=== PATIENT | female | born 1945 | race Caucasian/White ===

== ENCOUNTER 2017-02-17 05:02 | Inpatient (IN) | payer MEDICARE, OTHER ==
[2017-02-17] MEDS ORDERED: ASPIRIN 81 MG CHEW PO STA (05:03)
[2017-02-17] MEDS ORDERED: NITROGLYCERIN SL TABS 0.4 MG TAB SUBLINGUAL PRN (05:03)
[2017-02-17] MEDS: ATROPINE SULFATE 0.1 MG/ML 10ML SYRINGE IV STA ×2 (05:20→05:24)
[2017-02-17] MEDS: HEPARIN SODIUM,PORCINE 5,000 UNIT/ML 1 ML VIAL IV STA ×2 (05:21→05:22)
[2017-02-17 05:29] LABS: CH 29.8; CHCM 29.5; HCT 40.5 % (34.0-46.0); HDW 2.35; HGB 12.8 gm/dL (11.4-16.0); Hypochromasia Marked; MCH 32.1 pg (25.0-35.0); MCHC 31.7 g/dL (31.0-37.0); MCV 101.4 fL (80.0-100.0); Macrocytosis Slight; Mean Platelet Volume 7.9; RDW 13.4 % (11.5-15.5)
[2017-02-17] MEDS ORDERED: ONDANSETRON 4 MG/2 ML VIAL IVP STA (05:38)
[2017-02-17 05:44] LABS: INR 1.1 (<1.1); Partial Thromboplastin Time 43.6 sec (22.0-30.0); Prothrombin Time 10.8 sec (9.0-12.0)
[2017-02-17] MEDS: MORPHINE SULFATE 4 MG/ML SYRINGE IV ONE ×2 (05:55→07:05)
[2017-02-17] MEDS ORDERED: SODIUM CHLORIDE 0.9% 1,000 ML IV ONE ×4 (05:55→21:16)
[2017-02-17] MEDS ORDERED: MORPHINE SULFATE 4 MG/ML SYRINGE ONE (05:57)
--- NOTE | 2017-02-17 05:58 | XR ---
EXAM: XR Chest, 1 View. CLINICAL HISTORY: Reason: chest pain TECHNIQUE: Frontal view of the chest. COMPARISON: No relevant prior studies available. FINDINGS: Lungs: Mild hazy opacity along the left cardiac apex and left lung base. Lungs are otherwise clear. Pleural space: Linear densities projecting to right lung apex and left upper lung zone most likely related to overlying artifacts. No definite evidence of pneumothorax. Mild pleural density right costophrenic angle which may reflect mild pleural thickening or small right pleural effusion. Heart: Heart size and mediastinal structures are within normal limits. . Mediastinum: Unremarkable. Bones/joints: Unremarkable. IMPRESSION: Left base opacity extending to cardiac apex which may be related to prominent cardiac fat pad, but cannot exclude mild basilar infiltrate or partial atelectasis. Small right pleural effusion or mild pleural thickening along the right costophrenic angle.
[2017-02-17] MEDS ORDERED: ATROPINE SULFATE 0.1 MG/ML 10ML SYRINGE IV ONE ×2 (06:03→07:41)
[2017-02-17] MEDS ORDERED: DOPamine DRIP 800 MG in DEXTROSE/WATER 1 500ML.BAG IV ONE (06:03)
[2017-02-17 06:17] LABS: Troponin I 0.448 ng/mL (0.000-0.034)
[2017-02-17] MEDS ORDERED: NOREPINEPHRINE 4 MG in SODIUM CHLORIDE 0.9% 250 ML IV ONE (06:20)
[2017-02-17] MEDS ORDERED: BIVALIRUDIN BOLUS 250 MG/50 ML IV ONE (06:24)
[2017-02-17] MEDS ORDERED: BIVALIRUDIN 250 MG in SODIUM CHLORIDE 0.9% 50 ML IV ONE ×5 (06:26→07:40)
[2017-02-17 06:31] LABS: Calcium 9.5 mg/dL (8.4-10.2); Potassium 4.9 mmol/L (3.5-5.1); Total Protein 6.5 g/dL (6.3-8.2)
[2017-02-17] MEDS ORDERED: niCARdipine 25 MG/10 ML VIAL ONE (06:31)
[2017-02-17] MEDS ORDERED: SODIUM BICARB SYR (1 MEQ/ML) 10 ML SYRINGE IV ONE ×2 (06:37→06:39)
[2017-02-17] MEDS ORDERED: SODIUM BICARB 8.4% 50 ML VIAL (1 MEQ/ML) IV ONE ×3 (06:37→08:02)
[2017-02-17] MEDS ORDERED: niCARdipine Syringe (1,000 mcg/10 mL) INTRACORON ONE (06:39)
[2017-02-17] MEDS ORDERED: INSULIN LISPRO (humaLOG) 300 UNIT/3 ML VIAL SQ ONE ×2 (06:40→08:25)
[2017-02-17] MEDS ORDERED: diphenhydrAMINE 50 MG/ML 1 ML VIAL ONE (07:00)
[2017-02-17] MEDS ORDERED: MIDAZOLAM 2 MG/2 ML VIAL ONE (07:02)
[2017-02-17] MEDS ORDERED: METOPROLOL TARTRATE 5 MG/5 ML VIAL IVP ONE ×2 (07:03→07:06)
[2017-02-17] MEDS ORDERED: diphenhydrAMINE 50 MG/ML 1 ML VIAL IVP ONE (07:04)
[2017-02-17] MEDS ORDERED: MORPHINE SULFATE (PF) 1 MG/ML AMP IV ONE (07:05)
[2017-02-17] MEDS ORDERED: PRASUGREL 10 MG TAB ONE (07:06)
[2017-02-17] MEDS: MIDAZOLAM 2 MG/2 ML VIAL IV ONE ×2 (07:07→07:35)
[2017-02-17] MEDS ORDERED: PROPOFOL 10 MG/ML 20 ML VIAL IV ONE (07:28)
[2017-02-17] MEDS ORDERED: SUCCINYLCHOLINE CHLORIDE 100 MG/5 ML SYR IV ONE (07:28)
[2017-02-17] MEDS ORDERED: ETOMIDATE 2 MG/ML 10 ML VIAL ONE (07:28)
[2017-02-17] MEDS ORDERED: ROCURONIUM BROMIDE 10 MG/ML 10 ML VIAL IV ONE (07:28)
[2017-02-17] MEDS ORDERED: IODIXANOL 320 MG/ML 100 ML INTRAARTER ONE (07:49)
[2017-02-17 07:51] LABS: ABG Base Excess -21.5 mmol/L; ABG HCO3 10 mmol/L (21-25); ABG PCO2 53 mmHg (35-45); ABG PH <7.00 (7.35-7.45); ABG PO2 122 mmHg (83-108)
[2017-02-17 07:52] LABS: ABG Oxygen Saturation 95.5 % (94-97)
[2017-02-17] MEDS ORDERED: PRASUGREL 10 MG TAB OG-TUBE ONE (07:56)
[2017-02-17 08:00] LABS: Basophils # (A) 0.1 k/uL (0-0.2); Basophils % (A) 1 %; CH 29.5; CHCM 27.8; Eosinophils # (A) 0.1 k/uL (0-0.7); Eosinophils % (A) 1 %; HCT 38.1 % (34.0-46.0); HDW 2.31; HGB 11.5 gm/dL (11.4-16.0); Hypochromasia Marked; Luc % (Auto) 3; Lymphocytes # (A) 3.6 k/uL (1.0-4.8); Lymphocytes % (A) 31 %; MCH 32.3 pg (25.0-35.0); MCHC 30.3 g/dL (31.0-37.0); MCV 106.6 fL (80.0-100.0); Macrocytosis Moderate; Mean Platelet Volume 7.7; Monocytes # (A) 0.4 k/uL (0-1.0); Monocytes % (A) 3 %; Neutrophils # (A) 7.4 k/uL (1.3-7.7); Neutrophils % (A) 63 %; RBC 3.57 m/uL (3.80-5.40); RDW 13.4 % (11.5-15.5); WBC 11.9 k/uL (3.8-10.6)
[2017-02-17 08:01] LABS: Calcium 7.5 mg/dL (8.4-10.2); Potassium 4.9 mmol/L (3.5-5.1); Total Bilirubin 0.9 mg/dL (0.2-1.3); Total Protein 5.4 g/dL (6.3-8.2)
[2017-02-17] MEDS ORDERED: SODIUM BICARB 8.4% 50 ML SYR (1 MEQ/ML) IV ONE (08:02)
[2017-02-17] MEDS ORDERED: SODIUM CHLORIDE 0.45% 1,000 ML with SODIUM BICARB (1 MEQ/ML) 50 ML IV SCH ×2 (08:15)
[2017-02-17] MEDS ORDERED: SODIUM CHLORIDE 0.45% 1,000 ML IV SCH (08:15)
[2017-02-17] MEDS ORDERED: Potassium Replacement Protocol 1 EACH MISC MISCELLANE PRN (08:21)
[2017-02-17] MEDS ORDERED: Magnesium Replacement Protocol 1 EACH MISC MISCELLANE PRN (08:21)
[2017-02-17 08:52] LABS: Glucose,Whole Blood >600 mg/dL (75-99)
[2017-02-17] MEDS ORDERED: NALOXONE 0.4 MG/ML 1 ML VIAL IV PRN (09:06)
[2017-02-17 09:20] LABS: Basophils # (A) 0.1 k/uL (0-0.2); Basophils % (A) 1 %; CH 30.2; CHCM 28.7; Eosinophils # (A) 0.1 k/uL (0-0.7); Eosinophils % (A) 1 %; HCT 39.3 % (34.0-46.0); HDW 2.27; HGB 11.7 gm/dL (11.4-16.0); Hypochromasia Marked; Luc # (Auto) 0.16; Luc % (Auto) 1; Lymphocytes # (A) 2.5 k/uL (1.0-4.8); Lymphocytes % (A) 16 %; MCH 31.5 pg (25.0-35.0); MCHC 29.8 g/dL (31.0-37.0); MCV 105.5 fL (80.0-100.0); Macrocytosis Moderate; Mean Platelet Volume 7.8; Monocytes # (A) 0.3 k/uL (0-1.0); Monocytes % (A) 2 %; Neutrophils # (A) 12.9 k/uL (1.3-7.7); Neutrophils % (A) 80 %; RBC 3.73 m/uL (3.80-5.40); RDW 13.6 % (11.5-15.5); WBC 16.1 k/uL (3.8-10.6); WBC (Perox) 15.09
[2017-02-17 09:23] LABS: Calcium 7.6 mg/dL (8.4-10.2); Potassium 4.8 mmol/L (3.5-5.1); Total Bilirubin 1.4 mg/dL (0.2-1.3); Total Protein 6.3 g/dL (6.3-8.2)
[2017-02-17 09:32] LABS: Prothrombin Time 62.2 sec (9.0-12.0)
[2017-02-17 09:36] LABS: Partial Thromboplastin Time >200.0 sec (22.0-30.0)
--- NOTE | 2017-02-17 09:36 | XR ---
EXAMINATION TYPE: XR chest 1V portable DATE OF EXAM: 02/17/2017 9:25 AM CLINICAL HISTORY: Difficulty breathing had to be intubated. TECHNIQUE: Single AP portable supine view of the chest is obtained. COMPARISON: Chest x-ray from earlier today FINDINGS: There is new endotracheal tube at aortic knob level, approximately 1 to 2 cm above the italo. There is new orogastric tube projecting below left hemidiaphragm. Cardiac silhouette size is stable and upper limits of normal. There is new central vascular congestio n felt present. Patchy bibasilar atelectatic changes now seen. No large pleural effusion or pneumotho rax is noted. Osseous structures are intact. IMPRESSION: 1. New ET and OGT are satisfactory in position. 2. New mild central vascular congestion and patchy bibasilar atelectatic change.
[2017-02-17 09:37] LABS: INR 6.1 (<1.1)
[2017-02-17 09:38] LABS: ABG PCO2 44 mmHg (35-45); ABG PH 7.15 (7.35-7.45)
[2017-02-17 09:39] LABS: ABG Base Excess -12.6 mmol/L; ABG HCO3 15 mmol/L (21-25); ABG PO2 89 mmHg (83-108); ABG TCO2 16 mmol/L (19-24)
[2017-02-17 09:43] LABS: Manual Review Performed
[2017-02-17] MEDS: INSULIN REGULAR 100 UNIT in SODIUM CHLORIDE 0.9% 100 ML IV SCH ×2 (09:43→17:06)
[2017-02-17 10:05] LABS: Troponin I 20.3 ng/mL (0.000-0.034)
[2017-02-17 10:16] LABS: Appearance,Urine Cloudy (Clear); Bilirubin,Urine Negative (Negative); Glucose,Urine (UA) 4+ (Negative); Ketones,Urine 1+ (Negative); Leukocyte Esterase,Urine Trace (Negative); Mucus,Urine Rare /hpf; Nitrite,Urine Positive (Negative); PH, Urine 5.5 (5.0-8.0); Particle Count 8482; Protein,Urine 1+ (Negative); RBC,Urine 29 /hpf (0-5); Specific Gravity,Urine 1.018 (1.001-1.035); UA Billing (MACRO vs. MICRO) MICRO; Urobilinogen,Urine <2.0 mg/dL (<2.0); WBC,Urine 6 /hpf (0-5)
[2017-02-17] MEDS ORDERED: SODIUM CHLORIDE 0.45% 1,000 ML with SODIUM BICARB (1 MEQ/ML) 150 ML IV SCH ×2 (10:30)
[2017-02-17 10:34] LABS: Glucose,Whole Blood 571 mg/dL (75-99)
[2017-02-17] MEDS: SODIUM CHLORIDE 0.9% 1,000 ML IV SCH (10:37)
[2017-02-17] MEDS: NOREPINEPHRINE 4 MG in SODIUM CHLORIDE 0.9% 250 ML IV SCH ×3 (10:40→20:00)
[2017-02-17] MEDS: PROPOFOL 500 MG in EMPTY BAG 1 BAG IV SCH ×4 (10:40→22:54)
--- NOTE | 2017-02-17 10:43 | ECHOF ---
Referral Reason:stemi/balloon pump MEASUREMENTS -------- HEIGHT: 157.5 cm WEIGHT: 74.8 kg BP: 116/60 IVSd: 1.2 cm (0.6 - 1.1) LVIDd: 4.0 cm (3.9 - 5.3) LVPWd: 1.1 cm (0.6 - 1.1) IVSs: 2.4 cm LVIDs: 3.0 cm LVPWs: 1.1 cm Ao Diam: 3.9 cm (2.0 - 3.7) AV Cusp: 2.0 cm (1.5 - 2.6) LA Diam: 3.0 cm (2.7 - 3.8) MV EXCURSION: 11.106 mm (> 18.000) MV EF SLOPE: 70 mm/s (70 - 150) EPSS: 2.2 cm MV E Kirk: 0.89 m/s MV DecT: 178 ms MV A Kirk: 0.48 m/s MV E/A Ratio: 1.87 AR PHT: 779 ms RAP: 5.00 mmHg RVSP: 21.41 mmHg FINDINGS -------- Resting tachycardia (HR>100bpm). This was a technically good study. There is borderline concentric left ventricular hypertrophy. Overall left ventricular systolic function is moderately impaired with, an EF between 35 - 40 %. Inferiorlateral Hypokinesis The right ventricle is normal in size and function. The left atrium is normal in size. The right atrium is normal in size. The aortic valve is trileaflet, and appears structurally normal. No aortic stenosis or regurgitation. There is mild aortic regurgitation. The mitral valve leaflets are mildly thickened. Mild mitral regurgitation is present. Mild tricuspid regurgitation present. The right ventricular systolic pressure, as measured by Doppler, is 21.41mmHg. Pulmonic valve appears structurally normal. The aortic root is mildy dilated. The pericardium is normal. CONCLUSIONS -------- 1. Resting tachycardia (HR>100bpm). 2. There is mild aortic regurgitation. 3. The mitral valve leaflets are mildly thickened. 4. Mild mitral regurgitation is present. 5. Mild tricuspid regurgitation present. 6. The right ventricular systolic pressure, as measured by Doppler, is 21.41mmHg. 7. Pulmonic valve appears structurally normal. 8. The aortic root is mildy dilated. 9. The pericardium is normal. 10. This was a technically good study. 11. There is borderline concentric left ventricular hypertrophy. 12. Overall left ventricular systolic function is moderately impaired with, an EF between 35 - 40 %. 13. Inferiorlateral Hypokinesis 14. The right ventricle is normal in size and function. 15. The left atrium is normal in size. 16. The right atrium is normal in size. 17. The aortic valve is trileaflet, and appears structurally normal. No aortic stenosis or regurgitation. RISK OFFICER: Charo Monreal RDCS
[2017-02-17 11:06] LABS: Glucose,Whole Blood 561 mg/dL (75-99)
[2017-02-17] MEDS: DOPamine DRIP 800 MG in DEXTROSE/WATER 1 500ML.BAG IV SCH (11:37)
[2017-02-17 11:52] LABS: ALT 277 U/L (9-52); AST 736 U/L (14-36); Alkaline Phosphatase 120 U/L (38-126); Anion Gap 17 mmol/L; Blood Urea Nitrogen 17 mg/dL (7-17); Calcium 8.1 mg/dL (8.4-10.2); Carbon Dioxide 17 mmol/L (22-30); Chloride 107 mmol/L (98-107); Magnesium 1.7 mg/dL (1.6-2.3); Non-African American GFR(MDRD) 43 (>60 ml/min/1.73 sqM); Phosphorous 4.7 mg/dL (2.5-4.5); Potassium 4.8 mmol/L (3.5-5.1); Sodium 141 mmol/L (137-145); Total Bilirubin 1.6 mg/dL (0.2-1.3); Total Protein 6.4 g/dL (6.3-8.2)
[2017-02-17] MEDS ORDERED: PANTOPRAZOLE 40 MG/10 ML VIAL IVP SCH (11:52)
[2017-02-17 12:06] LABS: Glucose 565 mg/dL (74-99)
[2017-02-17 12:08] LABS: Glucose,Whole Blood 429 mg/dL (75-99)
[2017-02-17] MEDS: PANTOPRAZOLE 40 MG/10 ML VIAL IVP SCH (12:19)
[2017-02-17 13:15] LABS: ABG Base Excess -13.7 mmol/L; ABG HCO3 14 mmol/L (21-25); ABG PCO2 48 mmHg (35-45); ABG PO2 163 mmHg (83-108); ABG TCO2 16 mmol/L (19-24)
[2017-02-17 13:18] LABS: Glucose,Whole Blood 363 mg/dL (75-99)
--- NOTE | 2017-02-17 13:26 | P.CNPUL ---
History of Present Illness Consult date: 02/17/17 Requesting physician: Angelique Christie Chief complaint: status post acute ST elevation myocardial infarction and stent placement History of present illness: this is a 71-year-old femalewas admitted from the cardiac catheterization laboratory to the intensive care unit, patient supposedly presented with acute ST elevation myocardial infarction, and she underwent immediate cardiac catheterization and stent placement. While in the tender labor, patient became hypotensive, required intra-aortic balloon pump placement, placed on dopamine and levo fed, intubated in the cardiac tender labor, and transferred to the ICU and I was asked to see her on consultation.patient is presently on mechanical ventilation, not much history can be obtained from the patient, and no family members at bedside upon my initial evaluation. Dr. Walsh apparently tried earlier to get hold of some family members, and he was unsuccessful. At any rate patient is now on mechanical ventilation, ventilator settings were adjusted according to the ABG. Chest x-ray showed no evidence of congestive heart failure.initial ABG showed a pO2 of 89 pCO2 of 44 pH of 7.15,follow up ABG was significantly improved.blood sugar was noted to be elevated, and liver enzymes were also elevated upon presentation. [place] to be most likely related to hypoperfusion. Review of Systems ROS unobtainable: due to endotracheal tube Past Medical History Past Medical History: Diabetes Mellitus, Hypertension, Osteoarthritis (OA) Additional Past Medical History / Comment(s): NIDDM type II, arthritis bilateral knees and thumbs, diarrhea r/t medications. History of Any Multi-Drug Resistant Organisms: None Reported Past Surgical History: Cholecystectomy, Heart Catheterization With Stent, Tubal Ligation Additional Past Surgical History / Comment(s): 02/17/17 PCI with stent to RCA. Past Anesthesia/Blood Transfusion Reactions: No Reported Reaction Date of Last Stent Placement:: 02/17/17 Past Psychological History: No Psychological Hx Reported Additional Psychological History / Comment(s): Pt resides alone. She is independent. Smoking Status: Current every day smoker Past Alcohol Use History: None Reported Additional Past Alcohol Use History / Comment(s): Family states pt started smoking as a teen. Past Drug Use History: None Reported - Past Family History Father Family Medical History: Respiratory Disorder Mother Family Medical History: Dementia, Rheumatoid Arthritis (RA) Medications and Allergies Home Medications Medication Instructions Recorded Confirmed Type Glimepiride [Glimepiride] 1 mg PO AC-BID 02/17/17 02/17/17 History Lovastatin [Mevacor] 10 mg PO HS 02/17/17 02/17/17 History Valsartan [Valsartan] 80 mg PO DAILY 02/17/17 02/17/17 History metFORMIN HCL [Metformin HCl] 1,000 mg PO BID 02/17/17 02/17/17 History Allergies Allergy/AdvReac Type Severity Reaction Status Date / Time codeine Allergy Unknown Verified 02/17/17 05:13 Physical Exam Vitals: Vital Signs Temp Pulse Resp BP Pulse Ox 02/17/17 13:00 97.9 F 92 23 100 02/17/17 12:50 92 23 100 02/17/17 12:40 92 23 100 02/17/17 12:30 91 23 100 02/17/17 12:20 94 23 100 02/17/17 12:10 91 20 100 02/17/17 12:00 93 23 100 02/17/17 11:50 94 19 100 02/17/17 11:40 91 12 100 02/17/17 11:30 94.4 F L 95 19 99 02/17/17 11:20 88 13 100 02/17/17 11:10 95 23 99 02/17/17 11:00 92 0 L 99 02/17/17 10:50 95 5 L 99 02/17/17 10:40 89 13 98 02/17/17 10:30 95 22 98 02/17/17 10:20 88 0 L 98 02/17/17 10:10 90 7 L 98 02/17/17 10:00 93 8 L 97 02/17/17 09:50 96 6 L 97 02/17/17 09:40 101 H 0 L 97 02/17/17 09:30 100 21 96 02/17/17 09:20 97 22 97 02/17/17 09:10 90 22 96 02/17/17 09:00 89 24 98 02/17/17 08:54 93.5 F L 89 22 100 02/17/17 05:37 50 L 22 75/46 100 02/17/17 05:23 55 L 20 88/52 100 Intake and Output 02/16/17 02/17/17 02/17/17 22:59 06:59 14:59 Intake Total 1420 734.047 Output Total 675 Balance 1420 59.047 Intake: IV 1420 200 Intake, IV Titration 534.047 Amount DOPamine DRIP 800 mg In 33.6 Dextrose/Water 1 500ml. bag @ 3 MCG/KG/MIN 9.15 mls/hr IV .Q24H [facility] Rx#: [id number] Insulin Regular 100 unit 28.093 In Sodium Chloride 0.9% 100 ml @ 0.1 UNITS/KG/HR 7.55 mls/hr IV .[id number] [facility] Rx#:[id number] Norepinephrine 4 mg In 20.341 Sodium Chloride 0.9% 250 ml @ Titrate IV .Q0M [facility] Rx#:[id number] Propofol 500 mg In Empty 22.013 Bag 1 bag @ Titrate IV . Q0M [facility] Rx#:[id number] Sodium Chloride 0.45% 1, 125 000 ml @ 125 mls/hr IV . Q8H24M [facility] with Sodium Bicarb (1 Meq/ml) 50 ml Rx#:[id number] Sodium Chloride 0.45% 1, 225 000 ml @ 75 mls/hr IV . [id number] [facility] with Sodium Bicarb (1 Meq/ml) 150 ml Rx#:[id number] Sodium Chloride 0.9% 1, 80 000 ml @ 20 mls/hr IV . Q24H [facility] Rx#:[id number] Output: Urine 675 Other: Voiding Method Indwelling Catheter Weight 81.4 kg Patient Weight 02/18/17 06:59 Weight 81.4 kg ABP, PAP, CO, CI - Last 8 Hours Arterial Blood Pressure 102/51 Arterial Blood Pressure 106/35 Arterial Blood Pressure 107/34 Arterial Blood Pressure 89/35 Arterial Blood Pressure 91/50 Arterial Blood Pressure 100/44 Arterial Blood Pressure 101/49 Arterial Blood Pressure 94/52 Arterial Blood Pressure 132/74 Arterial Blood Pressure 97/50 Arterial Blood Pressure 126/55 Arterial Blood Pressure 93/40 Arterial Blood Pressure 99/41 Arterial Blood Pressure 109/55 Arterial Blood Pressure 134/76 Arterial Blood Pressure 105/44 Arterial Blood Pressure 102/56 Arterial Blood Pressure 91/52 Arterial Blood Pressure 109/56 Arterial Blood Pressure 120/63 Arterial Blood Pressure 120/62 Arterial Blood Pressure 114/63 Arterial Blood Pressure 110/59 Arterial Blood Pressure 102/51 Arterial Blood Pressure 107/48 Physical Exam: Revealed a 71-year-old female on mechanical ventilation, sedated , in no distress. HEENT:[Neck is supple.] [No neck masses.] [No thyromegaly.] [No JVD.] endotracheal tube is intact. Chest: minimal crackles at the bases, no rhonchi, no wheezes] Cardiac Exam: [Normal S1 and S2, no S3 gallop, no murmur.] Abdomen: [Soft, nontender, no megaly, no rebound, no guarding, normal bowel sounds.] Extremities: [No clubbing, no edema, no cyanosis.]intra-aortic balloon pump was noted, and it was placed through the right groin. Neurological Exam: cannot be assessed, patient is on propofol drip.] Results - Laboratory Findings CBC and BMP: 02/17/17 08:56 02/17/17 11:05 ABG ABG pH 7.15 (7.35-7.45) L* 02/17/17 09:28 ABG pCO2 44 mmHg (35-45) 02/17/17 09:28 ABG pO2 89 mmHg (83-108) 02/17/17 09:28 ABG O2 Saturation 94.0 % (94-97) 02/17/17 09:28 PT/INR, D-dimer PT 62.2 sec (9.0-12.0) H 02/17/17 08:56 INR 6.1 (<1.1) H* 02/17/17 08:56 Abnormal lab findings: Abnormal Labs 02/17/17 02/17/17 02/17/17 07:30 07:30 07:30 WBC 11.9 H RBC 3.57 L MCV 106.6 H D MCHC 30.3 L Neutrophils # PT INR APTT ABG pH <7.00 L* ABG pCO2 53 H ABG pO2 122 H ABG HCO3 10 L* ABG Total CO2 ABG O2 Saturation ABG Lactic Acid Carbon Dioxide 10 L* Creatinine 1.31 H Glucose 724 H* POC Glucose (mg/dL) Calcium 7.5 L Phosphorus Total Bilirubin AST 261 H ALT 128 H CK-MB (CK-2) Troponin I Total Protein 5.4 L Albumin 2.8 L Urine Appearance Urine Protein Urine Glucose (UA) Urine Ketones Urine Blood Urine Nitrite Ur Leukocyte Esterase Urine RBC Urine WBC Urine Mucus 02/17/17 02/17/17 02/17/17 07:30 08:50 08:50 WBC RBC MCV MCHC Neutrophils # PT INR APTT ABG pH ABG pCO2 ABG pO2 ABG HCO3 ABG Total CO2 ABG O2 Saturation ABG Lactic Acid Carbon Dioxide Creatinine Glucose POC Glucose (mg/dL) >600 H Calcium Phosphorus Total Bilirubin AST ALT CK-MB (CK-2) Troponin I 5.090 H* Total Protein Albumin Urine Appearance Cloudy H Urine Protein 1+ H Urine Glucose (UA) 4+ H Urine Ketones 1+ H Urine Blood Moderate H Urine Nitrite Positive H Ur Leukocyte Esterase Trace H Urine RBC 29 H Urine WBC 6 H Urine Mucus Rare H 02/17/17 02/17/17 02/17/17 08:53 08:56 08:56 WBC 16.1 H RBC 3.73 L MCV 105.5 H MCHC 29.8 L Neutrophils # 12.9 H PT INR APTT ABG pH 7.10 L* ABG pCO2 48 H ABG pO2 163 H ABG HCO3 14 L ABG Total CO2 16 L ABG O2 Saturation 99.0 H ABG Lactic Acid Carbon Dioxide 14 L Creatinine 1.30 H Glucose 686 H* POC Glucose (mg/dL) Calcium 7.6 L Phosphorus Total Bilirubin 1.4 H AST 478 H ALT 214 H CK-MB (CK-2) Troponin I Total Protein Albumin Urine Appearance Urine Protein Urine Glucose (UA) Urine Ketones Urine Blood Urine Nitrite Ur Leukocyte Esterase Urine RBC Urine WBC Urine Mucus 02/17/17 02/17/17 02/17/17 08:56 08:56 08:56 WBC RBC MCV MCHC Neutrophils # PT 62.2 H INR 6.1 H* APTT >200.0 H* ABG pH ABG pCO2 ABG pO2 ABG HCO3 ABG Total CO2 ABG O2 Saturation ABG Lactic Acid 12.0 H* Carbon Dioxide Creatinine Glucose POC Glucose (mg/dL) Calcium Phosphorus Total Bilirubin AST ALT CK-MB (CK-2) 59.0 H* Troponin I 20.300 H* Total Protein Albumin Urine Appearance Urine Protein Urine Glucose (UA) Urine Ketones Urine Blood Urine Nitrite Ur Leukocyte Esterase Urine RBC Urine WBC Urine Mucus 02/17/17 02/17/17 02/17/17 09:28 10:30 11:05 WBC RBC MCV MCHC Neutrophils # PT INR APTT ABG pH 7.15 L* ABG pCO2 ABG pO2 ABG HCO3 15 L ABG Total CO2 16 L ABG O2 Saturation ABG Lactic Acid Carbon Dioxide 17 L Creatinine 1.24 H Glucose 565 H* POC Glucose (mg/dL) 571 H Calcium 8.1 L Phosphorus 4.7 H Total Bilirubin 1.6 H AST 736 H ALT 277 H CK-MB (CK-2) Troponin I Total Protein Albumin Urine Appearance Urine Protein Urine Glucose (UA) Urine Ketones Urine Blood Urine Nitrite Ur Leukocyte Esterase Urine RBC Urine WBC Urine Mucus 02/17/17 02/17/17 11:05 12:06 WBC RBC MCV MCHC Neutrophils # PT INR APTT ABG pH ABG pCO2 ABG pO2 ABG HCO3 ABG Total CO2 ABG O2 Saturation ABG Lactic Acid Carbon Dioxide Creatinine Glucose POC Glucose (mg/dL) 561 H 429 H Calcium Phosphorus Total Bilirubin AST ALT CK-MB (CK-2) Troponin I Total Protein Albumin Urine Appearance Urine Protein Urine Glucose (UA) Urine Ketones Urine Blood Urine Nitrite Ur Leukocyte Esterase Urine RBC Urine WBC Urine Mucus - Diagnostic Findings Chest x-ray: image reviewed (mild vascular congestion and minimal atelectatic changes.) Assessment and Plan Plan: impression: 1 acute hypoxic respiratory failure secondary to acute myocardial infarction, cardiogenic shock, and severe LV dysfunction. 2 status post stent placement and intra-aortic balloon pump placement. 3 suspect history of diabetes, patient is presently on insulin drip. Recommendation: Continue present ventilatory support, continue dopamine, levo fed, insulin, GI and DVT prophylaxis, intra-aortic balloon pump, and possibly address nutritional support in the next 24 hours. Prognosis is definitely guarded. We'll continue to follow. Time with Patient: Greater than 30
[2017-02-17 13:37] LABS: ABG HCO3 19 mmol/L (21-25); ABG PCO2 35 mmHg (35-45); ABG PH 7.34 (7.35-7.45); ABG PO2 143 mmHg (83-108); ABG TCO2 20 mmol/L (19-24)
[2017-02-17 13:38] LABS: ABG Base Excess -6.2 mmol/L
[2017-02-17] MEDS: IPRATROPIUM 0.5 MG/2.5 ML NEBU INHALATION SCH ×3 (13:40→20:46)
[2017-02-17] MEDS: LEVALBUTEROL NEB (CONC) 1.25 MG/0.5 ML AMP INHALATION SCH ×3 (13:41→20:45)
[2017-02-17 14:02] LABS: Glucose,Whole Blood 308 mg/dL (75-99)
[2017-02-17] MEDS: MAGNESIUM SULFATE-D5W PMX 1 GM in DEXTROSE/WATER 1 100ML.BAG IVPB SCH ×2 (14:42→15:45)
[2017-02-17 15:12] LABS: Glucose,Whole Blood 253 mg/dL (75-99)
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
[2017-02-17 15:41] LABS: Calcium 8.3 mg/dL (8.4-10.2); Phosphorous 2.1 mg/dL (2.5-4.5); Potassium 3.5 mmol/L (3.5-5.1)
[2017-02-17] MEDS ORDERED: SODIUM CHLORIDE 0.9% 500 ML IV ONE ×2 (15:44→16:15)
[2017-02-17 16:23] LABS: Glucose,Whole Blood 209 mg/dL (75-99)
[2017-02-17 16:28] LABS: ABG Base Excess -3.6 mmol/L; ABG HCO3 20 mmol/L (21-25); ABG PCO2 33 mmHg (35-45); ABG PO2 120 mmHg (83-108); ABG TCO2 21 mmol/L (19-24)
[2017-02-17] MEDS: D5-0.45% NACL WITH KCL 20MEQ/L 1,000 ML IV SCH (16:49)
[2017-02-17 17:06] LABS: Glucose,Whole Blood 180 mg/dL (75-99)
[2017-02-17 17:55] LABS: Glucose,Whole Blood 173 mg/dL (75-99)
[2017-02-17 18:09] LABS: Glucose,Whole Blood 176 mg/dL (75-99)
[2017-02-17 19:31] LABS: Glucose,Whole Blood 165 mg/dL (75-99)
[2017-02-17 20:17] LABS: Glucose,Whole Blood 159 mg/dL (75-99)
[2017-02-17 20:28] LABS: Basophils % (A) 0 %; CHCM 32.1; Eosinophils % (A) 0 %; HCT 35.3 % (34.0-46.0); HDW 2.38; HGB 11.4 gm/dL (11.4-16.0); Luc # (Auto) 0.16; Luc % (Auto) 1; Lymphocytes # (A) 2.1 k/uL (1.0-4.8); Lymphocytes % (A) 15 %; MCH 31.3 pg (25.0-35.0); MCHC 32.3 g/dL (31.0-37.0); Mean Platelet Volume 8.2; Monocytes # (A) 0.7 k/uL (0-1.0); Monocytes % (A) 5 %; Neutrophils # (A) 11.4 k/uL (1.3-7.7); Neutrophils % (A) 79 %; RBC 3.63 m/uL (3.80-5.40); RDW 14.1 % (11.5-15.5); WBC 14.5 k/uL (3.8-10.6); WBC (Perox) 14.84
[2017-02-17 20:41] LABS: MCV 97.1 fL (80.0-100.0)
[2017-02-17 20:56] LABS: Calcium 7.2 mg/dL (8.4-10.2); Phosphorous 2.4 mg/dL (2.5-4.5); Potassium 3.4 mmol/L (3.5-5.1)
[2017-02-17] MEDS ORDERED: INSULIN GLARGINE 100 UNIT/ML 10 ML VIAL SQ SCH (21:00)
[2017-02-17 21:03] LABS: ABG PH 7.37 (7.35-7.45)
[2017-02-17 21:04] LABS: ABG Base Excess -5.4 mmol/L; ABG HCO3 19 mmol/L (21-25); ABG PCO2 34 mmHg (35-45); ABG PO2 111 mmHg (83-108); ABG TCO2 20 mmol/L (19-24)
[2017-02-17 21:11] LABS: Glucose,Whole Blood 156 mg/dL (75-99)
[2017-02-17] MEDS: LISINOPRIL 2.5 MG TAB PO SCH (21:14)
[2017-02-17] MEDS: CHLORHEXIDINE GLUCONATE 15 ML CUP MUCOUS MEM SCH (21:21)
--- NOTE | 2017-02-17 21:35 | ED ---
Chest Pain HPI - General Chief Complaint: Chest Pain Stated Complaint: STEMI Time Seen by Provider: 02/17/17 05:03 Source: patient, EMS Mode of arrival: EMS Limitations: physical limitation (Dyspnea) - History of Present Illness Initial Comments: This patient is a 71-year-old woman brought by EMS for chest pain. History is limited as the patient has severe dyspnea. She indicates that the pain it started on the previous day but then worsened this morning. She also developed dyspnea, vomiting, diaphoresis. She called EMS this morning who brought her here. MD Complaint: chest pain Onset/Timin -: days(s) Onset: during rest Pain Location: substernal Severity: severe Quality: heaviness Consistency: constant Improves With: nothing Worsens With: nothing Anginal Symptoms: vomiting, diaphoresis Treatments Prior to Arrival: nitroglycerin, oxygen - Related Data Home Medications Medication Instructions Recorded Confirmed Glimepiride [Glimepiride] 1 mg PO AC-BID 02/17/17 02/17/17 Lovastatin [Mevacor] 10 mg PO HS 02/17/17 02/17/17 Valsartan [Valsartan] 80 mg PO DAILY 02/17/17 02/17/17 metFORMIN HCL [Metformin HCl] 1,000 mg PO BID 02/17/17 02/17/17 Allergies Allergy/AdvReac Type Severity Reaction Status Date / Time codeine Allergy Unknown Verified 02/17/17 05:13 Review of Systems ROS Statement: Those systems with pertinent positive or pertinent negative responses have been documented in the HPI. ROS Other: All systems not noted in ROS Statement are negative. Limitations: ROS unobtainable due to patients medical condition Constitutional: Reports: weakness Respiratory: Reports: dyspnea Cardiovascular: Reports: chest pain, orthopnea Gastrointestinal: Reports: vomiting. Denies: abdominal pain Musculoskeletal: Denies: back pain Neurological: Denies: headache EKG Findings - EKG Results: EKG: interpreted by ERMD, sinus rhythm, normal axis EKG shows: bradycardia - KY, Pacemaker, Normal: Myocardial infarction: inferior KY (acute or recent) Past Medical History Past Medical History: Diabetes Mellitus, Hyperlipidemia, Hypertension, Osteoarthritis (OA) Additional Past Medical History / Comment(s): NIDDM type II, arthritis bilateral knees and thumbs, diarrhea r/t medications. History of Any Multi-Drug Resistant Organisms: None Reported Past Surgical History: Cholecystectomy, Heart Catheterization With Stent, Tubal Ligation Additional Past Surgical History / Comment(s): 02/17/17 PCI with stent to RCA. Past Anesthesia/Blood Transfusion Reactions: No Reported Reaction Date of Last Stent Placement:: 02/17/17 Past Psychological History: No Psychological Hx Reported Additional Psychological History / Comment(s): Pt resides alone. She is independent. Smoking Status: Current every day smoker Past Alcohol Use History: None Reported Additional Past Alcohol Use History / Comment(s): Family states pt started smoking as a teen and is cutting back to 5 cigarettes per day and apparently heavy smoking in the past. No street drug use, no alcohol use. She lives in the apartment. No recent falls. She does not use any DME for ambulation, no CPAP, no nebulizer. Past Drug Use History: None Reported - Past Family History Father Family Medical History: Respiratory Disorder Additional Family Medical History / Comment(s): Father at 65 from COPD. Mother Family Medical History: Dementia, Rheumatoid Arthritis (RA) Additional Family Medical History / Comment(s): Mother in her late 70s with history of Alzheimer's disease. Brother(s) Additional Family Medical History / Comment(s): She has one brother with history of heart failure and a pacemaker. Sister(s) Additional Family Medical History / Comment(s): She has 2 sisters with no major medical problems. Son(s) Additional Family Medical History / Comment(s): Patient has 3 sons and one has history of kidney stones. 2 sons with no major medical problems. Patient has one daughter with no major medical problems. General Exam Limitations: no limitations General appearance: alert, in distress Head exam: Present: atraumatic, normocephalic Eye exam: Present: normal appearance, PERRL, EOMI. Absent: scleral icterus, conjunctival injection ENT exam: Present: mucous membranes dry Neck exam: Present: normal inspection, full ROM. Absent: meningismus Respiratory exam: Present: respiratory distress, rhonchi. Absent: wheezes, stridor, decreased breath sounds, prolonged expiratory Cardiovascular Exam: Present: normal rhythm, bradycardia, normal heart sounds. Absent: systolic murmur, diastolic murmur, rubs, gallop GI/Abdominal exam: Present: soft. Absent: distended, tenderness, guarding, rebound Extremities exam: Absent: pedal edema, calf tenderness Back exam: Absent: CVA tenderness (R), CVA tenderness (L) Neurological exam: Present: alert Skin exam: Present: intact, diaphoretic, mottled. Absent: rash, cyanosis, erythema, petechiae, pallor Course Vital Signs 02/17/17 02/17/17 02/17/17 05:10 05:13 05:23 Temperature 94.7 F L Pulse Rate 47 L 55 L Respiratory 22 20 20 Rate Blood Pressure 70/40 88/52 O2 Sat by Pulse 100 100 Oximetry 02/17/17 05:37 Temperature Pulse Rate 50 L Respiratory 22 Rate Blood Pressure 75/46 O2 Sat by Pulse 100 Oximetry Chest Pain MDM - MDM This patient is 71-year-old woman brought by EMS to be evaluated for chest pain. They called approximately 2-3 minutes prior to arrival stating that they believe they had a STEMI patient. They sent a telemetry EKG that arrived approximately simultaneously with their arrival here. We repeated EKG does show inferior ST elevation [place]. The Lining Machine Tender was activated and I discussed case with the quarter inspector. On arrival he patient is in distress and the history is limited. She is bradycardic and hypotensive. Patient changed from nasal cannula 100% nonrebreather mask. IV fluid boluses started. The patient's blood pressure initially in the 70s over 40s. She did receive dose of atropine the patient's heart rate responded increasing to the mid 60s and her blood pressure then went to 88/52. The patient's chest pain also had some improvement. The patient received aspirin on arrival. The patient is started on IV heparin as well, after I reviewed the chest x-ray and there is no widened mediastinum. The patient's labs are sent and pending when she had gone to the Lining Machine Tender. The cath team and then took the patient to the Lining Machine Tender. I discussed the case with the quarter inspector and with the admitting physician. Critical Care Time Critical Care Time: Yes (30 minutes) Disposition Clinical Impression: Acute non-ST segment elevation myocardial infarction (STEMI) following previous myocardial infarction, Hypotension Disposition: ADMITTED IP TO THIS HOSP Condition: Critical
[2017-02-17] MEDS: NOREPINEPHRINE 16 MG in SODIUM CHLORIDE 0.9% 250 ML IV SCH (21:58)
[2017-02-17 22:09] LABS: Glucose,Whole Blood 150 mg/dL (75-99)
[2017-02-17] MEDS: POTASSIUM CHLORIDE 10 MEQ, LIDOCAINE 2% INJ 10 MG in SODIUM CHLORIDE 0.9% 100 ML IV SCH (22:54)
[2017-02-17] MEDS ORDERED: SODIUM PHOSPHATE 10 MMOL in SODIUM CHLORIDE 0.9% 250 ML IVPB ONE (23:00)
[2017-02-17 23:04] LABS: ABG HCO3 18 mmol/L (21-25); ABG PCO2 34 mmHg (35-45); ABG PH 7.35 (7.35-7.45); ABG PO2 83 mmHg (83-108); ABG TCO2 19 mmol/L (19-24)
[2017-02-17 23:05] LABS: ABG Base Excess -6.5 mmol/L
[2017-02-17] MEDS: DIGOXIN 250 MCG/ML 2 ML AMP IVP SCH (23:35)
[2017-02-18] MEDS: LEVALBUTEROL NEB (CONC) 1.25 MG/0.5 ML AMP INHALATION SCH ×7 (00:06→23:38)
[2017-02-18] MEDS: IPRATROPIUM 0.5 MG/2.5 ML NEBU INHALATION SCH ×7 (00:06→23:38)
[2017-02-18] MEDS: PROPOFOL 500 MG in EMPTY BAG 1 BAG IV SCH ×9 (00:16→20:19)
[2017-02-18] MEDS: POTASSIUM CHLORIDE 10 MEQ, LIDOCAINE 2% INJ 10 MG in SODIUM CHLORIDE 0.9% 100 ML IV SCH (00:16)
[2017-02-18 00:38] LABS: Glucose,Whole Blood 211 mg/dL (75-99)
[2017-02-18] MEDS: D5-0.45% NACL WITH KCL 20MEQ/L 1,000 ML IV SCH (01:11)
[2017-02-18] MEDS: INSULIN LISPRO (humaLOG) 300 UNIT/3 ML VIAL SQ SCH ×2 (01:31→04:48)
[2017-02-18] MEDS: NOREPINEPHRINE 16 MG in SODIUM CHLORIDE 0.9% 250 ML IV SCH ×4 (04:04→16:51)
[2017-02-18 04:19] LABS: Glucose,Whole Blood 265 mg/dL (75-99)
[2017-02-18] MEDS: DIGOXIN 250 MCG/ML 2 ML AMP IVP SCH (05:16)
[2017-02-18 05:53] LABS: Basophils % (A) 0 %; CH 30.9; CHCM 31.5; Eosinophils % (A) 0 %; HCT 37.7 % (34.0-46.0); HDW 2.39; HGB 11.9 gm/dL (11.4-16.0); Luc % (Auto) 1; Lymphocytes # (A) 2.1 k/uL (1.0-4.8); Lymphocytes % (A) 13 %; MCH 31.1 pg (25.0-35.0); MCHC 31.6 g/dL (31.0-37.0); MCV 98.3 fL (80.0-100.0); Mean Platelet Volume 7.6; Monocytes # (A) 0.8 k/uL (0-1.0); Monocytes % (A) 5 %; Neutrophils % (A) 81 %; RBC 3.83 m/uL (3.80-5.40); RDW 14.3 % (11.5-15.5); WBC 16.1 k/uL (3.8-10.6); WBC (Perox) 16.35
[2017-02-18 06:01] LABS: INR 1.1 (<1.1); Prothrombin Time 11.4 sec (9.0-12.0)
[2017-02-18 06:02] LABS: Magnesium 1.7 mg/dL (1.6-2.3); Phosphorous 3.5 mg/dL (2.5-4.5); Potassium 4.3 mmol/L (3.5-5.1)
[2017-02-18 06:07] LABS: Partial Thromboplastin Time 22.3 sec (22.0-30.0)
[2017-02-18] MEDS: MAGNESIUM SULFATE-D5W PMX 1 GM in DEXTROSE/WATER 1 100ML.BAG IVPB SCH ×2 (07:11→07:56)
--- NOTE | 2017-02-18 07:11 | XR ---
EXAMINATION TYPE: XR chest 1V portable DATE OF EXAM: 02/18/2017 6:45 AM Comparison: 02/17/2017 Clinical History: 71 year-old female tube placement Findings: Heart is normal size. ET tube is satisfactory. NG tube courses below the diaphragm. Pacer lead is see n coming from below to the right ventricle. Diffuse interstitial opacities show some interval improve ment. Some residual bibasilar strandy atelectasis. Impression: Interval improvement with residual mild pulmonary vascular congestion.
[2017-02-18 07:54] LABS: Glucose,Whole Blood 302 mg/dL (75-99)
[2017-02-18] MEDS ORDERED: INSULIN REGULAR BOLUS (FROM DRIP BAG) IV PRN (07:54)
[2017-02-18 08:02] LABS: Hemoglobin A1C 9.2 % (4.2-6.1)
[2017-02-18] MEDS ORDERED: FUROSEMIDE 10 MG/ML 10 ML VIAL IV STA (08:14)
[2017-02-18] MEDS: PRASUGREL 10 MG TAB PO SCH (08:24)
[2017-02-18] MEDS: PANTOPRAZOLE 40 MG/10 ML VIAL IVP SCH (08:24)
[2017-02-18] MEDS: CHLORHEXIDINE GLUCONATE 15 ML CUP MUCOUS MEM SCH ×2 (08:25→22:38)
[2017-02-18] MEDS: ASPIRIN 81 MG CHEW PO SCH (08:25)
[2017-02-18] MEDS: INSULIN REGULAR 100 UNIT in SODIUM CHLORIDE 0.9% 100 ML IV SCH ×2 (08:26→10:41)
[2017-02-18 08:28] LABS: ABG Base Excess -10.9 mmol/L; ABG HCO3 14 mmol/L (21-25); ABG PCO2 29 mmHg (35-45); ABG PH 7.32 (7.35-7.45); ABG PO2 89 mmHg (83-108); ABG TCO2 15 mmol/L (19-24)
[2017-02-18 08:47] LABS: Glucose,Whole Blood 272 mg/dL (75-99)
[2017-02-18] MEDS: DEXTROSE 5% IN WATER 1,000 ML with SODIUM BICARB (1 MEQ/ML) 150 ML IV SCH (08:52)
[2017-02-18] MEDS ORDERED: PRASUGREL 10 MG TAB PO SCH (09:00)
[2017-02-18] MEDS ORDERED: PANTOPRAZOLE 40 MG/10 ML VIAL IVP SCH (09:00)
[2017-02-18] MEDS: PIPERACILLIN-TAZOBACTAM 3.375 GM in DEXTROSE/WATER 1 50ML.BAG IVPB SCH ×2 (09:04→16:07)
--- NOTE | 2017-02-18 09:33 | CONS ---
DATE OF CONSULTATION: This is a 71-year-old patient who was seen by me with early this morning when she presented with an acute inferior RI to [facility] emergency room. This lady was seen in the ER by Dr. Taylor who called me early this morning. Her primary care physician is unknown. Apparently she sees Dr. Gu but it is not clear as to when she saw him. She has hypertension, diabetes, chronic kidney disease and she was brought into the emergency room and was found to have very hypotensive, bradycardic and was brought to the labor operator expeditiously. I evaluated her in the labor operator. Patient was having discomfort. She was not very communicative, not a good historian. Blood pressure was about 90 systolic, pulse rate was in the 50s. Patient had already received Atropine downstairs. It appeared that we were dealing with an acute inferior RI with ST elevations and patient wants intermittent complete heart block type picture with hypotension. Past medical history remarkable for diabetes, chronic kidney disease, hypertension. MEDICATIONS: No list was unavailable but apparently she takes: 1. Valsartan. 2. Glimepiride. No allergies: THERE WAS A QUESTION OF ALLERGY TO CODEINE. On examination, blood pressure was 90 systolic, pulse rate was 50 per minute. There is JVD of 1 cm. No carotid bruit. S1, S2 are heard normally, but distantly short systolic murmur was audible at the base. Lungs bilateral air entry diminished. ABDOMEN: Soft, nontender. Lower extremities reveal diminished pulses. No edema. Central nervous system assessment revealed that patient was able to move all 4 extremities. Detailed exam was not performed. EKG revealed sinus mechanism with a second degree heart block and ST elevation involving inferior leads. IMPRESSION: 1. Acute inferior myocardial infarction with high-grade AV block and cardiogenic shock. 2. History of diabetes. 3. History of hypertension. RECOMMENDATIONS: I recommended urgent cardiac catheterization, temporary pacemaker placement, aortic balloon pump placement and PCI based on findings. There was no family available. We made several attempts to contact her son Carter based on the telephone number in her possession. Prognosis remains very poor for this lady with multiple medical problems. She was also quite acidotic with a pH of 6.9. Blood sugar was elevated. I gave her NovoLog and we will treat her sugar and hydrate her aggressively. Prognosis remains poor. Mortality risk is very given her acidosis, cardiogenic shock, and also complete heart block. Prompt intervention was advised.
[2017-02-18 09:53] LABS: Glucose,Whole Blood 249 mg/dL (75-99)
[2017-02-18 10:11] LABS: Glucose,Whole Blood 234 mg/dL (75-99)
--- NOTE | 2017-02-18 10:51 | P.PN ---
Subjective Principal diagnosis: Acute respiratory failure secondary to acute myocardial infarction/ST elevation myocardial infarction. This is a 71-year-old female who presented yesterday with acute inferior myocardial infarction. Patient was seen in the ER by cardiology, and she underwent immediate cardiac catheterization. Patient was found to have significant ST elevation and intermittent complete heart block picture with hypotension. In the [employer], patient developed high-grade AV block and cardiogenic shock. Patient had a temporary pacemaker placement and aortic balloon pump placement and PCI. Patient was later transferred to the ICU, and I saw on consultation yesterday. Today on 02/18/2017, patient remains on mechanical ventilation, remains on sodium bicarb drip, her ABG showed a pO2 of 89 pCO2 of 29 pH of 7.32. WBC count 16.1 hemoglobin is 11.9 PTT is 22.3 INR is 1.1. BUN is 16 creatinine is 1.20 unchanged from yesterday, not to mention that the urine output is becoming marginal, and I recommended a Lasix to be given early this morning. Patient remains on FiO2 of 45% with adequate oxygenation. Patient remains on propofol, sedated, she remains on 50 g of levo fed, and she is on dopamine at 3 mcg/kg/m. Patient is also on insulin drip for significant hyperglycemia. Objective - Vital Signs Vital signs: Vital Signs Temp 101.3 F H 02/18/17 08:30 Pulse 84 02/18/17 10:00 Resp 38 H 02/18/17 10:00 BP 101/74 02/18/17 02:30 Pulse Ox 96 02/18/17 10:00 Intake & Output 02/17/17 02/18/17 02/18/17 18:59 06:59 18:59 Intake Total 3152.691 4298.020 1752.714 Output Total 810 567 85 Balance 2342.691 3731.020 1667.714 Weight 81.4 kg 86.5 kg 86.5 kg Intake: IV 237 3254.2 1286.6 D5-0.45% NaCl with KCl 850 100 20Meq/l 1,000 ml @ 50 mls /hr IV .Q20H [facility] Rx#: [id number] DOPamine DRIP 800 mg In 33.6 Dextrose/Water 1 500ml. bag @ 3 MCG/KG/MIN 9.15 mls/hr IV .Q24H [facility] Rx#: [id number] DOPamine DRIP 800 mg In 40.6 22.6 Dextrose/Water 1 500ml. bag As IV .STK-MED ONE Rx #:[id number] Magnesium Sulfate-D5w Pmx 100 1 gm In Dextrose/Water 1 100ml.bag @ 100 mls/hr IVPB Q1H [facility] Rx#: [id number] NS 1660 1019 Potassium Chloride 10 meq 200 Lidocaine 2% Inj 10 mg In Sodium Chloride 0.9% 100 ml @ 100 mls/hr IV Q1HR [facility] Rx#:[id number] Sodium Chloride 0.45% 1, 220 45 000 ml @ 25 mls/hr IV . Q24H [facility] with Sodium Bicarb (1 Meq/ml) 150 ml Rx#:[id number] Sodium Phosphate 10 mmol 250 In Sodium Chloride 0.9% 250 ml @ 125 mls/hr IVPB ONCE ONE Rx#:[id number] Intake, IV Titration 2915.691 1043.820 466.114 Amount D5-0.45% NaCl with KCl 275 150 20Meq/l 1,000 ml @ 50 mls /hr IV .Q20H [facility] Rx#: [id number] DOPamine DRIP 800 mg In 75.6 124.3 Dextrose/Water 1 500ml. bag @ 3 MCG/KG/MIN 9.15 mls/hr IV .Q24H [facility] Rx#: [id number] Dextrose 5% in Water 1, 100 000 ml @ 50 mls/hr IV . Q23H [facility] with Sodium Bicarb (1 Meq/ml) 150 ml Rx#:[id number] Insulin Regular 100 unit 97.125 In Sodium Chloride 0.9% 100 ml @ 0.1 UNITS/KG/HR 7.55 mls/hr IV .[id number] [facility] Rx#:[id number] Insulin Regular 100 unit 25.867 In Sodium Chloride 0.9% 100 ml @ Per Protocol IV .Q0M [facility] Rx#:[id number] Magnesium Sulfate-D5w Pmx 200 1 gm In Dextrose/Water 1 100ml.bag @ 100 mls/hr IVPB Q1H [facility] Rx#: [id number] Norepinephrine 16 mg In 266.000 266 Sodium Chloride 0.9% 250 ml @ Titrate IV .Q0M [facility] Rx#:[id number] Norepinephrine 4 mg In 340.953 294.132 Sodium Chloride 0.9% 250 ml @ Titrate IV .Q0M [facility] Rx#:[id number] Piperacillin-Tazobactam 3 25.0 .375 gm In Dextrose/Water 1 50ml.bag @ 12.5 mls/hr IVPB Q8HR [facility] Rx#: [id number] Propofol 500 mg In Empty 122.013 164.388 49.247 Bag 1 bag @ Titrate IV . Q0M [facility] Rx#:[id number] Sodium Chloride 0.45% 1, 125 000 ml @ 125 mls/hr IV . Q8H24M [facility] with Sodium Bicarb (1 Meq/ml) 50 ml Rx#:[id number] Sodium Chloride 0.45% 1, 500 25 000 ml @ 25 mls/hr IV . Q24H [facility] with Sodium Bicarb (1 Meq/ml) 150 ml Rx#:[id number] Sodium Chloride 0.9% 1, 180 20 000 ml @ 20 mls/hr IV . Q24H [facility] Rx#:[id number] Sodium Chloride 0.9% 500 1000 ml @ 999 mls/hr IV .Q31M ONE Rx#:[id number] Output: Gastric Drainage 200 Urine 810 367 85 Other: Voiding Method Indwelling Catheter Indwelling Catheter Indwelling Catheter ABP, PAP, CO, CI - Last Documented Arterial Blood Pressure 86/46 - Exam Physical Exam: Revealed a 71-year-old female on mechanical ventilation, sedated , in no distress. HEENT:[Neck is supple.] [No neck masses.] [No thyromegaly.] [No JVD.] endotracheal tube is intact. Chest: minimal crackles at the bases, no rhonchi, no wheezes] Cardiac Exam: [Normal S1 and S2, no S3 gallop, no murmur.] Abdomen: [Soft, nontender, no megaly, no rebound, no guarding, normal bowel sounds.] Extremities: [No clubbing, no edema, no cyanosis.]intra-aortic balloon pump was noted, and it was placed through the right groin. Neurological Exam: cannot be assessed, patient is on propofol drip.] - Labs CBC & Chem 7: 02/18/17 05:20 02/18/17 05:20 Labs: Abnormal Lab Results - Last 24 Hours (Table) 02/17/17 02/17/17 02/17/17 Range/Units 08:53 08:56 11:05 WBC (3.8-10.6) k/uL RBC (3.80-5.40) m/uL Neutrophils # (1.3-7.7) k/uL ABG pH 7.10 L* (7.35-7.45) ABG pCO2 48 H (35-45) mmHg ABG pO2 163 H (83-108) mmHg ABG HCO3 14 L (21-25) mmol/L ABG Total CO2 16 L (19-24) mmol/L ABG O2 Saturation 99.0 H (94-97) % ABG Lactic Acid (0.5-1.6) mmol/L Potassium (3.5-5.1) mmol/L Chloride (98-107) mmol/L Carbon Dioxide 17 L (22-30) mmol/L BUN (7-17) mg/dL Creatinine 1.24 H (0.52-1.04) mg/dL Glucose 565 H* (74-99) mg/dL POC Glucose (mg/dL) (75-99) mg/dL Hemoglobin A1c (4.2-6.1) % Calcium 8.1 L (8.4-10.2) mg/dL Phosphorus 4.7 H (2.5-4.5) mg/dL Total Bilirubin 1.6 H (0.2-1.3) mg/dL AST 736 H (14-36) U/L ALT 277 H (9-52) U/L CK-MB (CK-2) 59.0 H* (0.0-2.4) ng/mL Troponin I 20.300 H* (0.000-0.034) ng/mL 02/17/17 02/17/17 02/17/17 Range/Units 11:05 12:06 12:33 WBC (3.8-10.6) k/uL RBC (3.80-5.40) m/uL Neutrophils # (1.3-7.7) k/uL ABG pH 7.34 L (7.35-7.45) ABG pCO2 (35-45) mmHg ABG pO2 143 H (83-108) mmHg ABG HCO3 19 L (21-25) mmol/L ABG Total CO2 (19-24) mmol/L ABG O2 Saturation 99.0 H (94-97) % ABG Lactic Acid (0.5-1.6) mmol/L Potassium (3.5-5.1) mmol/L Chloride (98-107) mmol/L Carbon Dioxide (22-30) mmol/L BUN (7-17) mg/dL Creatinine (0.52-1.04) mg/dL Glucose (74-99) mg/dL POC Glucose (mg/dL) 561 H 429 H (75-99) mg/dL Hemoglobin A1c (4.2-6.1) % Calcium (8.4-10.2) mg/dL Phosphorus (2.5-4.5) mg/dL Total Bilirubin (0.2-1.3) mg/dL AST (14-36) U/L ALT (9-52) U/L CK-MB (CK-2) (0.0-2.4) ng/mL Troponin I (0.000-0.034) ng/mL 02/17/17 02/17/17 02/17/17 Range/Units 13:16 14:00 14:53 WBC (3.8-10.6) k/uL RBC (3.80-5.40) m/uL Neutrophils # (1.3-7.7) k/uL ABG pH (7.35-7.45) ABG pCO2 (35-45) mmHg ABG pO2 (83-108) mmHg ABG HCO3 (21-25) mmol/L ABG Total CO2 (19-24) mmol/L ABG O2 Saturation (94-97) % ABG Lactic Acid (0.5-1.6) mmol/L Potassium (3.5-5.1) mmol/L Chloride 110 H (98-107) mmol/L Carbon Dioxide (22-30) mmol/L BUN 19 H (7-17) mg/dL Creatinine 1.31 H (0.52-1.04) mg/dL Glucose 242 H (74-99) mg/dL POC Glucose (mg/dL) 363 H 308 H (75-99) mg/dL Hemoglobin A1c (4.2-6.1) % Calcium 8.3 L (8.4-10.2) mg/dL Phosphorus 2.1 L (2.5-4.5) mg/dL Total Bilirubin (0.2-1.3) mg/dL AST (14-36) U/L ALT (9-52) U/L CK-MB (CK-2) (0.0-2.4) ng/mL Troponin I (0.000-0.034) ng/mL 02/17/17 02/17/17 02/17/17 Range/Units 15:09 16:21 16:21 WBC (3.8-10.6) k/uL RBC (3.80-5.40) m/uL Neutrophils # (1.3-7.7) k/uL ABG pH (7.35-7.45) ABG pCO2 33 L (35-45) mmHg ABG pO2 120 H (83-108) mmHg ABG HCO3 20 L (21-25) mmol/L ABG Total CO2 (19-24) mmol/L ABG O2 Saturation 99.0 H (94-97) % ABG Lactic Acid (0.5-1.6) mmol/L Potassium (3.5-5.1) mmol/L Chloride (98-107) mmol/L Carbon Dioxide (22-30) mmol/L BUN (7-17) mg/dL Creatinine (0.52-1.04) mg/dL Glucose (74-99) mg/dL POC Glucose (mg/dL) 253 H 209 H (75-99) mg/dL Hemoglobin A1c (4.2-6.1) % Calcium (8.4-10.2) mg/dL Phosphorus (2.5-4.5) mg/dL Total Bilirubin (0.2-1.3) mg/dL AST (14-36) U/L ALT (9-52) U/L CK-MB (CK-2) (0.0-2.4) ng/mL Troponin I (0.000-0.034) ng/mL 02/17/17 02/17/17 02/17/17 Range/Units 17:05 17:54 18:06 WBC (3.8-10.6) k/uL RBC (3.80-5.40) m/uL Neutrophils # (1.3-7.7) k/uL ABG pH (7.35-7.45) ABG pCO2 (35-45) mmHg ABG pO2 (83-108) mmHg ABG HCO3 (21-25) mmol/L ABG Total CO2 (19-24) mmol/L ABG O2 Saturation (94-97) % ABG Lactic Acid (0.5-1.6) mmol/L Potassium (3.5-5.1) mmol/L Chloride (98-107) mmol/L Carbon Dioxide (22-30) mmol/L BUN (7-17) mg/dL Creatinine (0.52-1.04) mg/dL Glucose (74-99) mg/dL POC Glucose (mg/dL) 180 H 173 H 176 H (75-99) mg/dL Hemoglobin A1c (4.2-6.1) % Calcium (8.4-10.2) mg/dL Phosphorus (2.5-4.5) mg/dL Total Bilirubin (0.2-1.3) mg/dL AST (14-36) U/L ALT (9-52) U/L CK-MB (CK-2) (0.0-2.4) ng/mL Troponin I (0.000-0.034) ng/mL 02/17/17 02/17/17 02/17/17 Range/Units 19:26 20:16 20:16 WBC (3.8-10.6) k/uL RBC (3.80-5.40) m/uL Neutrophils # (1.3-7.7) k/uL ABG pH (7.35-7.45) ABG pCO2 (35-45) mmHg ABG pO2 (83-108) mmHg ABG HCO3 (21-25) mmol/L ABG Total CO2 (19-24) mmol/L ABG O2 Saturation (94-97) % ABG Lactic Acid (0.5-1.6) mmol/L Potassium 3.4 L (3.5-5.1) mmol/L Chloride 113 H (98-107) mmol/L Carbon Dioxide 21 L (22-30) mmol/L BUN (7-17) mg/dL Creatinine 1.20 H (0.52-1.04) mg/dL Glucose 149 H (74-99) mg/dL POC Glucose (mg/dL) 165 H 159 H (75-99) mg/dL Hemoglobin A1c (4.2-6.1) % Calcium 7.2 L (8.4-10.2) mg/dL Phosphorus 2.4 L (2.5-4.5) mg/dL Total Bilirubin (0.2-1.3) mg/dL AST (14-36) U/L ALT (9-52) U/L CK-MB (CK-2) (0.0-2.4) ng/mL Troponin I (0.000-0.034) ng/mL 02/17/17 02/17/17 02/17/17 Range/Units 20:16 20:55 21:09 WBC 14.5 H (3.8-10.6) k/uL RBC 3.63 L (3.80-5.40) m/uL Neutrophils # 11.4 H (1.3-7.7) k/uL ABG pH (7.35-7.45) ABG pCO2 34 L (35-45) mmHg ABG pO2 111 H (83-108) mmHg ABG HCO3 19 L (21-25) mmol/L ABG Total CO2 (19-24) mmol/L ABG O2 Saturation 98.0 H (94-97) % ABG Lactic Acid (0.5-1.6) mmol/L Potassium (3.5-5.1) mmol/L Chloride (98-107) mmol/L Carbon Dioxide (22-30) mmol/L BUN (7-17) mg/dL Creatinine (0.52-1.04) mg/dL Glucose (74-99) mg/dL POC Glucose (mg/dL) 156 H (75-99) mg/dL Hemoglobin A1c (4.2-6.1) % Calcium (8.4-10.2) mg/dL Phosphorus (2.5-4.5) mg/dL Total Bilirubin (0.2-1.3) mg/dL AST (14-36) U/L ALT (9-52) U/L CK-MB (CK-2) (0.0-2.4) ng/mL Troponin I (0.000-0.034) ng/mL 02/17/17 02/17/17 02/18/17 Range/Units 22:08 22:56 00:36 WBC (3.8-10.6) k/uL RBC (3.80-5.40) m/uL Neutrophils # (1.3-7.7) k/uL ABG pH (7.35-7.45) ABG pCO2 34 L (35-45) mmHg ABG pO2 (83-108) mmHg ABG HCO3 18 L (21-25) mmol/L ABG Total CO2 (19-24) mmol/L ABG O2 Saturation (94-97) % ABG Lactic Acid (0.5-1.6) mmol/L Potassium (3.5-5.1) mmol/L Chloride (98-107) mmol/L Carbon Dioxide (22-30) mmol/L BUN (7-17) mg/dL Creatinine (0.52-1.04) mg/dL Glucose (74-99) mg/dL POC Glucose (mg/dL) 150 H 211 H (75-99) mg/dL Hemoglobin A1c (4.2-6.1) % Calcium (8.4-10.2) mg/dL Phosphorus (2.5-4.5) mg/dL Total Bilirubin (0.2-1.3) mg/dL AST (14-36) U/L ALT (9-52) U/L CK-MB (CK-2) (0.0-2.4) ng/mL Troponin I (0.000-0.034) ng/mL 02/18/17 02/18/17 02/18/17 Range/Units 04:17 05:20 05:20 WBC 16.1 H (3.8-10.6) k/uL RBC (3.80-5.40) m/uL Neutrophils # 13.0 H (1.3-7.7) k/uL ABG pH (7.35-7.45) ABG pCO2 (35-45) mmHg ABG pO2 (83-108) mmHg ABG HCO3 (21-25) mmol/L ABG Total CO2 (19-24) mmol/L ABG O2 Saturation (94-97) % ABG Lactic Acid (0.5-1.6) mmol/L Potassium (3.5-5.1) mmol/L Chloride 113 H (98-107) mmol/L Carbon Dioxide 18 L (22-30) mmol/L BUN (7-17) mg/dL Creatinine 1.20 H (0.52-1.04) mg/dL Glucose 265 H (74-99) mg/dL POC Glucose (mg/dL) 265 H (75-99) mg/dL Hemoglobin A1c (4.2-6.1) % Calcium 7.0 L (8.4-10.2) mg/dL Phosphorus (2.5-4.5) mg/dL Total Bilirubin (0.2-1.3) mg/dL AST (14-36) U/L ALT (9-52) U/L CK-MB (CK-2) (0.0-2.4) ng/mL Troponin I (0.000-0.034) ng/mL 02/18/17 02/18/17 02/18/17 Range/Units 05:20 05:20 07:19 WBC (3.8-10.6) k/uL RBC (3.80-5.40) m/uL Neutrophils # (1.3-7.7) k/uL ABG pH 7.32 L (7.35-7.45) ABG pCO2 29 L (35-45) mmHg ABG pO2 (83-108) mmHg ABG HCO3 14 L (21-25) mmol/L ABG Total CO2 15 L (19-24) mmol/L ABG O2 Saturation (94-97) % ABG Lactic Acid 3.2 H* (0.5-1.6) mmol/L Potassium (3.5-5.1) mmol/L Chloride (98-107) mmol/L Carbon Dioxide (22-30) mmol/L BUN (7-17) mg/dL Creatinine (0.52-1.04) mg/dL Glucose (74-99) mg/dL POC Glucose (mg/dL) (75-99) mg/dL Hemoglobin A1c 9.2 H (4.2-6.1) % Calcium (8.4-10.2) mg/dL Phosphorus (2.5-4.5) mg/dL Total Bilirubin (0.2-1.3) mg/dL AST (14-36) U/L ALT (9-52) U/L CK-MB (CK-2) (0.0-2.4) ng/mL Troponin I (0.000-0.034) ng/mL 02/18/17 02/18/17 02/18/17 Range/Units 07:52 08:46 09:52 WBC (3.8-10.6) k/uL RBC (3.80-5.40) m/uL Neutrophils # (1.3-7.7) k/uL ABG pH (7.35-7.45) ABG pCO2 (35-45) mmHg ABG pO2 (83-108) mmHg ABG HCO3 (21-25) mmol/L ABG Total CO2 (19-24) mmol/L ABG O2 Saturation (94-97) % ABG Lactic Acid (0.5-1.6) mmol/L Potassium (3.5-5.1) mmol/L Chloride (98-107) mmol/L Carbon Dioxide (22-30) mmol/L BUN (7-17) mg/dL Creatinine (0.52-1.04) mg/dL Glucose (74-99) mg/dL POC Glucose (mg/dL) 302 H 272 H 249 H (75-99) mg/dL Hemoglobin A1c (4.2-6.1) % Calcium (8.4-10.2) mg/dL Phosphorus (2.5-4.5) mg/dL Total Bilirubin (0.2-1.3) mg/dL AST (14-36) U/L ALT (9-52) U/L CK-MB (CK-2) (0.0-2.4) ng/mL Troponin I (0.000-0.034) ng/mL 02/18/17 Range/Units 10:10 WBC (3.8-10.6) k/uL RBC (3.80-5.40) m/uL Neutrophils # (1.3-7.7) k/uL ABG pH (7.35-7.45) ABG pCO2 (35-45) mmHg ABG pO2 (83-108) mmHg ABG HCO3 (21-25) mmol/L ABG Total CO2 (19-24) mmol/L ABG O2 Saturation (94-97) % ABG Lactic Acid (0.5-1.6) mmol/L Potassium (3.5-5.1) mmol/L Chloride (98-107) mmol/L Carbon Dioxide (22-30) mmol/L BUN (7-17) mg/dL Creatinine (0.52-1.04) mg/dL Glucose (74-99) mg/dL POC Glucose (mg/dL) 234 H (75-99) mg/dL Hemoglobin A1c (4.2-6.1) % Calcium (8.4-10.2) mg/dL Phosphorus (2.5-4.5) mg/dL Total Bilirubin (0.2-1.3) mg/dL AST (14-36) U/L ALT (9-52) U/L CK-MB (CK-2) (0.0-2.4) ng/mL Troponin I (0.000-0.034) ng/mL Microbiology - Last 24 Hours (Table) 02/17/17 08:50 Urine Culture - Preliminary Urine,Catheterized Assessment and Plan Plan: impression: 1 acute hypoxic respiratory failure secondary to acute inferior wall myocardial infarction, cardiogenic shock, and severe LV dysfunction. And intermittent high -grade A-V heart block. 2 status post stent placement and intra-aortic balloon pump placement. As well as temporary pacemaker placement 3 type 2 diabetes, patient is presently on insulin drip. 4 history of hypertension Recommendation: Continue present ventilatory support, continue dopamine, levo fed, insulin, GI and DVT prophylaxis, intra-aortic balloon pump, and possibly address nutritional support in the next 24 hours. Prognosis is definitely guarded. Discussed her condition with family at bedside, presently patient is DO NOT RESUSCITATE, prognosis is definitely poor, we'll continue to follow. Critical care time is 35 minutes. Time with Patient: Greater than 30
[2017-02-18 11:08] LABS: Glucose,Whole Blood 208 mg/dL (75-99)
[2017-02-18] MEDS ORDERED: ACETAMINOPHEN TAB 325 MG TAB PO PRN (11:30)
[2017-02-18 12:28] LABS: Glucose,Whole Blood 191 mg/dL (75-99)
[2017-02-18] MEDS: SODIUM CHLORIDE 0.9% 1,000 ML IV SCH (12:40)
[2017-02-18 13:35] LABS: Glucose,Whole Blood 198 mg/dL (75-99)
[2017-02-18 14:37] LABS: Glucose,Whole Blood 175 mg/dL (75-99)
[2017-02-18] MEDS ORDERED: ENOXAPARIN 40 MG/0.4 ML SYRINGE SQ SCH (14:45)
[2017-02-18 14:51] LABS: Magnesium 2.2 mg/dL (1.6-2.3); Phosphorous 3.7 mg/dL (2.5-4.5); Potassium 4.2 mmol/L (3.5-5.1); Total Bilirubin 0.9 mg/dL (0.2-1.3); Total Protein 4.9 g/dL (6.3-8.2)
[2017-02-18 15:00] LABS: Calcium 6.3 mg/dL (8.4-10.2)
[2017-02-18 15:23] LABS: Glucose,Whole Blood 172 mg/dL (75-99)
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
[2017-02-18 16:20] LABS: Glucose,Whole Blood 164 mg/dL (75-99)
[2017-02-18 17:40] LABS: Glucose,Whole Blood 168 mg/dL (75-99)
[2017-02-18 18:20] LABS: Glucose,Whole Blood 173 mg/dL (75-99)
[2017-02-18] MEDS: ALBUMIN HUMAN 25% 50 ML in EMPTY BAG 1 BAG IVPB SCH ×2 (18:28→18:36)
[2017-02-18 19:15] LABS: Glucose,Whole Blood 158 mg/dL (75-99)
[2017-02-18 20:08] LABS: Glucose,Whole Blood 158 mg/dL (75-99)
[2017-02-18 20:30] VITALS: BP 107/55
[2017-02-18 21:06] LABS: Glucose,Whole Blood 162 mg/dL (75-99)
[2017-02-18] MEDS: DOPamine DRIP 800 MG in DEXTROSE/WATER 1 500ML.BAG IV SCH (21:06)
--- NOTE | 2017-02-18 22:19 | PN ---
This lady is not waking up. She is on a very high dose of Levophed, on intra-aortic balloon pump with a temporary pacemaker that she is not using. Prognosis remains poor. I talked to the patient's son and [id number] and suggested that prognosis is bad and we should offer comfort care and probably not pursue any aggressive measures. It appears that we are dealing with a cardiogenic shock with acute ND and diabetic ketoacidosis. Prognosis remains quite poor. Augmented blood pressure on intra-aortic balloon pump is about 90. Urine output is very scanty, 20 to 30 mL/hour in the last few hours. S1, S2 heard normally. Short systolic murmur noted. Lungs reveal bilateral air entry. Abdomen and lower extremity exam unchanged. Overall prognosis for this patient is poor. I am recommending comfort care, and I will come back and talk to the family members later on.
[2017-02-18 22:24] LABS: Glucose,Whole Blood 159 mg/dL (75-99)
[2017-02-18] MEDS: LISINOPRIL 2.5 MG TAB PO SCH (22:26)
[2017-02-19] MEDS: PIPERACILLIN-TAZOBACTAM 3.375 GM in DEXTROSE/WATER 1 50ML.BAG IVPB SCH ×3 (00:06→17:29)
[2017-02-19 00:11] LABS: Glucose,Whole Blood 163 mg/dL (75-99)
[2017-02-19] MEDS: NOREPINEPHRINE 16 MG in SODIUM CHLORIDE 0.9% 250 ML IV SCH ×4 (00:18→20:33)
[2017-02-19] MEDS: PROPOFOL 500 MG in EMPTY BAG 1 BAG IV SCH ×10 (00:42→22:57)
[2017-02-19 02:08] LABS: Glucose,Whole Blood 157 mg/dL (75-99)
[2017-02-19] MEDS: DEXTROSE 5% IN WATER 1,000 ML with SODIUM BICARB (1 MEQ/ML) 150 ML IV SCH (03:24)
[2017-02-19] MEDS: IPRATROPIUM 0.5 MG/2.5 ML NEBU INHALATION SCH ×6 (03:25→23:44)
[2017-02-19] MEDS: LEVALBUTEROL NEB (CONC) 1.25 MG/0.5 ML AMP INHALATION SCH ×6 (03:25→23:44)
[2017-02-19 04:23] LABS: Glucose,Whole Blood 164 mg/dL (75-99)
[2017-02-19 04:33] LABS: Basophils # (A) 0.1 k/uL (0-0.2); Basophils % (A) 1 %; CH 31.2; CHCM 32.2; Eosinophils % (A) 0 %; HCT 34.3 % (34.0-46.0); HDW 2.49; HGB 10.8 gm/dL (11.4-16.0); Luc # (Auto) 0.19; Luc % (Auto) 1; Lymphocytes # (A) 2.1 k/uL (1.0-4.8); Lymphocytes % (A) 16 %; MCH 30.7 pg (25.0-35.0); MCHC 31.5 g/dL (31.0-37.0); MCV 97.5 fL (80.0-100.0); Mean Platelet Volume 8.3; Monocytes # (A) 0.5 k/uL (0-1.0); Monocytes % (A) 4 %; Neutrophils # (A) 10.1 k/uL (1.3-7.7); Neutrophils % (A) 78 %; RBC 3.52 m/uL (3.80-5.40); RDW 14.7 % (11.5-15.5); WBC 12.9 k/uL (3.8-10.6); WBC (Perox) 12.31
[2017-02-19 04:59] LABS: Magnesium 1.9 mg/dL (1.6-2.3)
[2017-02-19 05:21] LABS: Potassium 3.4 mmol/L (3.5-5.1)
[2017-02-19 05:49] LABS: Calcium 6.5 mg/dL (8.4-10.2)
[2017-02-19 06:17] LABS: Glucose,Whole Blood 158 mg/dL (75-99)
[2017-02-19] MEDS: ALBUMIN HUMAN 25% 50 ML in EMPTY BAG 1 BAG IVPB SCH ×4 (06:18→21:30)
[2017-02-19] MEDS: POTASSIUM CHLORIDE ORAL LIQUID 40 MEQ/30 ML CUP NG-TUBE SCH ×4 (06:41→22:13)
[2017-02-19] MEDS: MAGNESIUM SULFATE-D5W PMX 1 GM in DEXTROSE/WATER 1 100ML.BAG IVPB SCH ×2 (07:04→09:37)
--- NOTE | 2017-02-19 07:09 | XR ---
EXAMINATION TYPE: XR chest 1V portable DATE OF EXAM: 02/19/2017 6:50 AM COMPARISON: NONE HISTORY: SOB, Follow Up FINDINGS: Indwelling tubes and catheters are unchanged. No evidence of focal infiltrate. Stable appearance of the cardio-mediastinal structures at this time. Pleural effusion unchanged. IMPRESSION: 1. Stable portable chest. Clinical correlation and follow up until resolution is recommended.
--- NOTE | 2017-02-19 07:12 | CC ---
DATE OF SERVICE: 02/17/2017 PROCEDURE: 1. Transvenous temporary pacemaker placement. 2. Selective coronary angiography. 3. Intra-aortic balloon pump placement. CLINICAL INFORMATION: Mrs. Janet Burrows is a patient who presented to the emergency room with chest pain, was brought in by EMS. She had inferior ST elevation. There was no family available. After arrival, she was found to have inferior ST-elevation, hypotension, bradycardia, received atropine, IV fluids and transferred to the [facility]. I assessed her in the [facility]. I noted that she was in a cardiogenic shock with a high-grade AV block. She received atropine 1 mg IV push. I advised the patient that she is in a critical condition and we will do the best we can and that she could potentially be intubated. After this discussion, I went ahead and started the procedure and I made several attempts to reach the family without much success and this was happening by the charge nurse as well. PROCEDURE NOTE: Under local anesthesia and strict aseptic precautions, a 6 Macedonian introducer was placed in the right femoral artery. I also used another 6 Macedonian introducer in the right femoral vein as well. I placed another 6 Macedonian introducer in the left femoral artery as well for the usage of the intra-aortic balloon pump. Following the placement of the sheath, I went ahead with position and placed a temporary pacemaker and positioned the tip in the right ventricular apex under fluoroscopy guidance and set the back-up pacemaker at 50 beats per minute. Using standard Michele catheters, I performed coronary angiography of the left coronary artery and then of the right coronary artery. I noted that the RCA was a culprit lesion, totally occluded without much antegrade flow. Circumflex was probably subtotally occluded and may be a subacute or a chronic lesion, LAD had moderate disease. I performed intervention expeditiously and following the intervention procedure, patient also received intra-aortic balloon pump. CORONARY ANGIOGRAPHIC FINDINGS: LEFT MAIN CORONARY ARTERY: This is a very short vessel that is free of significant disease, bifurcates into LAD and circumflex. LEFT ANTERIOR DESCENDING CORONARY ARTERY: This vessel has no critical disease, but has diffuse disease throughout, gives off septal and diagonal branches, runs all the way to the apex in a tortuous fashion, supplies a sizable amount of myocardium. LEFT POSTERIOR CIRCUMFLEX CORONARY ARTERY: This vessel is very tortuous, as it comes off it almost appears as if there is a stump but in reality, it is a tortuous vessel that turns around and after 90 degree curves, there is a subtotal lesion after which there is a sluggish flow and late filling of the distal obtuse marginal branch. Circumflex therefore, is subtotally occluded in the midportion, extremely tortuous in the proximal portion, gives off 2 small obtuse marginal branches proximal to that. RIGHT CORONARY ARTERY: This is a totally occluded vessel with limited antegrade flow and a lot of thrombus. After a forceful injection, I was able to get some antegrade flow noted, but there is a thrombus sitting right at the site of total occlusion and it appears to be a dominant diffusely diseased vessel. FINAL IMPRESSION: This patient had a transvenous pacemaker placement and coronary angiography and I noted that right coronary artery was the culprit vessel, totally occluded. Patient was in a cardiogenic shock, and was on placed on dopamine and Levophed drips. Following intervention, I placed an intra-aortic balloon pump as well. I proceeded to perform intervention of the right coronary artery in the same setting expeditiously.
--- NOTE | 2017-02-19 07:19 | PTCA ---
DATE OF SERVICE: 02/17/2017 PROCEDURE: 1. Intra-aortic balloon pump placement. 2. Percutaneous transluminal coronary angioplasty and stenting of RCA. PROCEDURE NOTE: Existing 6 [place] introducer in the right femoral artery was used to perform the procedure. I used a standard right Michele-type guide catheter to cannulate the right coronary artery. Using a BMW wire and a 2.5 caliber, 8 mm long trek balloon, with this combination I was able to cross the lesion, wire was kept distally, balloon was inflated. Following this, I deployed a 2.5 caliber 15 mm long Xience stent at 30 atmospheres. Patient had a technically good angiographic result with a very brisk flow. Entire vessel and diffuse disease in it, but the angiographic appearance of the vessel was very good, distal flow was somewhat sluggish, I gave some nicardipine and there was some improvement in the flow noted. Following the good angiographic result, I proceeded to perform intra-aortic balloon pump placement and this was positioned under fluoroscopic guidance with a decent augmentation. At this point patient's overall condition worsened and she was intubated and placed on a ventilator. Ventilatory support was obtained and patient was sent to the ICU in critical condition. I could not find any family to talk to, but we made a lot of efforts to reach the patient's family and I was able to talk to them well after the procedure in the ICU, I talked to both the 2 sons and a daughter, explained to them that the condition is critical, mortality risk is very high. Patient also had a diabetic ketoacidosis picture with a sugar of over 500 and a bicarb 9. Her blood gases were acidotic. She received several amps of bicarb in the [employer]. She had a pH of 6.9. With the acidotic situation with the pH of less than 7 in the setting of a cardiogenic shock, survival changes are very low and this was explained to the patient and family. Angiographic result was good. Conscious sedation was provided for over 2 hours for this patient to the [employer] and she was monitored very closely. Prognosis remains poor.
[2017-02-19 08:19] LABS: Glucose,Whole Blood 191 mg/dL (75-99)
[2017-02-19 08:46] LABS: ABG PCO2 24 mmHg (35-45); ABG PH 7.42 (7.35-7.45)
[2017-02-19 08:47] LABS: ABG Base Excess -8.4 mmol/L; ABG HCO3 15 mmol/L (21-25); ABG Oxygen Saturation 96.4 % (94-97); ABG PO2 80 mmHg (83-108); ABG TCO2 16 mmol/L (19-24)
[2017-02-19] MEDS ORDERED: ACETAMINOPHEN IV (For NPO) 1,000 MG in EMPTY BAG 1 BAG IVPB PRN (09:07)
[2017-02-19 10:07] LABS: Glucose,Whole Blood 182 mg/dL (75-99)
[2017-02-19] MEDS: DOBUTamine DRIP 500 MG in DEXTROSE/WATER 1 250ML.BAG IV SCH (10:30)
[2017-02-19 11:10] LABS: Glucose,Whole Blood 189 mg/dL (75-99)
[2017-02-19] MEDS: PANTOPRAZOLE 40 MG/10 ML VIAL IVP SCH (11:22)
[2017-02-19] MEDS: CHLORHEXIDINE GLUCONATE 15 ML CUP MUCOUS MEM SCH ×2 (11:22→20:49)
[2017-02-19] MEDS: ASPIRIN 81 MG CHEW PO SCH (11:22)
[2017-02-19] MEDS: ENOXAPARIN 30 MG/0.3 ML SYRINGE SQ SCH (11:23)
[2017-02-19] MEDS: PRASUGREL 10 MG TAB PO SCH (11:23)
[2017-02-19 11:32] LABS: Glucose,Whole Blood 171 mg/dL (75-99)
[2017-02-19] MEDS ORDERED: FUROSEMIDE 10 MG/ML 10 ML VIAL IV STA (11:40)
[2017-02-19 12:11] LABS: Glucose,Whole Blood 191 mg/dL (75-99)
[2017-02-19 14:07] LABS: Glucose,Whole Blood 178 mg/dL (75-99)
--- NOTE | 2017-02-19 14:33 | P.PN ---
Subjective Principal diagnosis: Acute respiratory failure secondary to acute myocardial infarction/ST elevation myocardial infarction. This is a 71-year-old female who presented yesterday with acute inferior myocardial infarction. Patient was seen in the ER by cardiology, and she underwent immediate cardiac catheterization. Patient was found to have significant ST elevation and intermittent complete heart block picture with hypotension. In the [employer] [facility], patient developed high-grade AV block and cardiogenic shock. Patient had a temporary pacemaker placement and aortic balloon pump placement and PCI. Patient was later transferred to the ICU, and I saw on consultation yesterday. Today on 02/18/2017, patient remains on mechanical ventilation, remains on sodium bicarb drip, her ABG showed a pO2 of 89 pCO2 of 29 pH of 7.32. WBC count 16.1 hemoglobin is 11.9 PTT is 22.3 INR is 1.1. BUN is 16 creatinine is 1.20 unchanged from yesterday, not to mention that the urine output is becoming marginal, and I recommended a Lasix to be given early this morning. Patient remains on FiO2 of 45% with adequate oxygenation. Patient remains on propofol, sedated, she remains on 50 g of levo fed, and she is on dopamine at 3 mcg/kg/m. Patient is also on insulin drip for significant hyperglycemia. On 02/19/2017, patient remains on mechanical ventilation, her vent settings are basically about the same, chest x-ray is showing mild interstitial edema, urine output is extremely marginal, patient is now on relatively high dose of norepinephrine, she is also now on Dobutrex and blood pressure is marginal mean is running in the low 70s. Intra-aortic balloon pump remains in place. Augmentin blood pressure on intra-aortic balloon pump is about 90. Objective - Vital Signs Vital signs: Vital Signs Temp 99.8 F H 02/19/17 12:00 Pulse 91 02/19/17 14:00 Resp 31 H 02/19/17 14:00 BP 107/55 02/18/17 19:45 Pulse Ox 93 L 02/19/17 14:00 Intake & Output 02/18/17 02/19/17 02/19/17 18:59 06:59 18:59 Intake Total 3592.818 2042.180 1445.644 Output Total 470 748 240 Balance 3122.818 0709.234 0565.644 Weight 86.5 kg 89.3 kg 89.3 kg Intake: IV 2064.6 1367.5 1000 Albumin Human 25% 50 ml 50 50 In Empty Bag 1 bag @ 100 mls/hr IVPB Q12H [facility] Rx#: [id number] D5-0.45% NaCl with KCl 100 20Meq/l 1,000 ml @ 50 mls /hr IV .Q20H [facility] Rx#: [id number] DOPamine DRIP 800 mg In 50.6 0 Dextrose/Water 1 500ml. bag As IV .[facility] Rx #:[id number] Dextrose 5% in Water 1, 550 550 000 ml @ 75 mls/hr IV . [id number] [facility] with Sodium Bicarb (1 Meq/ml) 150 ml Rx#:[id number] Magnesium Sulfate-D5w Pmx 100 1 gm In Dextrose/Water 1 100ml.bag @ 100 mls/hr IVPB Q1H [facility] Rx#: [id number] Magnesium Sulfate-D5w Pmx 200 1 gm In Dextrose/Water 1 100ml.bag @ 100 mls/hr IVPB Q1H [facility] Rx#: [id number] NS 1769 680 200 Piperacillin-Tazobactam 3 87.5 .375 gm In Dextrose/Water 1 50ml.bag @ 12.5 mls/hr IVPB Q8HR [facility] Rx#: [id number] Sodium Chloride 0.45% 1, 45 000 ml @ 25 mls/hr IV . Q24H [facility] with Sodium Bicarb (1 Meq/ml) 150 ml Rx#:[id number] Intake, IV Titration 1528.218 674.680 430.644 Amount Albumin Human 25% 50 ml 50 In Empty Bag 1 bag @ 100 mls/hr IVPB Q12H [facility] Rx#: [id number] Albumin Human 25% 50 ml 50 In Empty Bag 1 bag @ 100 mls/hr IVPB Q12H [facility] Rx#: [id number] DOPamine DRIP 800 mg In 90.636 Dextrose/Water 1 500ml. bag @ 3 MCG/KG/MIN 9.15 mls/hr IV .Q24H [facility] Rx#: [id number] Dextrose 5% in Water 1, 500 50 000 ml @ 75 mls/hr IV . [id number] [facility] with Sodium Bicarb (1 Meq/ml) 150 ml Rx#:[id number] Insulin Regular 100 unit 46.908 33.006 In Sodium Chloride 0.9% 100 ml @ Per Protocol IV .Q0M [facility] Rx#:[id number] Norepinephrine 16 mg In 601.791 316.037 194.202 Sodium Chloride 0.9% 250 ml @ Titrate IV .Q0M [facility] Rx#:[id number] Piperacillin-Tazobactam 3 100.0 12.5 .375 gm In Dextrose/Water 1 50ml.bag @ 12.5 mls/hr IVPB Q8HR [facility] Rx#: [id number] Propofol 500 mg In Empty 188.883 196.143 143.436 Bag 1 bag @ Titrate IV . Q0M [facility] Rx#:[id number] Sodium Chloride 0.9% 1, 60 000 ml @ 20 mls/hr IV . Q24H [facility] Rx#:[id number] Other 15 Output: Gastric Drainage 100 100 Urine 470 648 140 Other: Voiding Method Indwelling Catheter Indwelling Catheter Indwelling Catheter ABP, PAP, CO, CI - Last Documented Arterial Blood Pressure 107/48 - Exam Physical Exam: Revealed a 71-year-old female on mechanical ventilation, sedated , in no distress. HEENT:[Neck is supple.] [No neck masses.] [No thyromegaly.] [No JVD.] endotracheal tube is intact. Chest: minimal crackles at the bases, no rhonchi, no wheezes] Cardiac Exam: [Normal S1 and S2, no S3 gallop, no murmur.] Abdomen: [Soft, nontender, no megaly, no rebound, no guarding, normal bowel sounds.] Extremities: [No clubbing, no edema, no cyanosis.]intra-aortic balloon pump was noted, and it was placed through the right groin. Neurological Exam: cannot be assessed, patient is on propofol drip.] - Labs CBC & Chem 7: 02/19/17 04:25 02/19/17 04:25 Labs: Abnormal Lab Results - Last 24 Hours (Table) 02/18/17 02/18/17 02/18/17 Range/Units 12:30 14:35 15:21 WBC (3.8-10.6) k/uL RBC (3.80-5.40) m/uL Hgb (11.4-16.0) gm/dL Plt Count (150-450) k/uL Neutrophils # (1.3-7.7) k/uL ABG pCO2 (35-45) mmHg ABG pO2 (83-108) mmHg ABG HCO3 (21-25) mmol/L ABG Total CO2 (19-24) mmol/L ABG Lactic Acid (0.5-1.6) mmol/L Potassium (3.5-5.1) mmol/L Chloride 116 H (98-107) mmol/L Carbon Dioxide 14 L (22-30) mmol/L BUN 18 H (7-17) mg/dL Creatinine 1.62 H (0.52-1.04) mg/dL Glucose 191 H (74-99) mg/dL POC Glucose (mg/dL) 175 H 172 H (75-99) mg/dL Calcium 6.3 L* (8.4-10.2) mg/dL AST 1267 H (14-36) U/L ALT 483 H (9-52) U/L Total Protein 4.9 L (6.3-8.2) g/dL Albumin 2.4 L (3.5-5.0) g/dL 02/18/17 02/18/17 02/18/17 Range/Units 16:13 17:38 18:18 WBC (3.8-10.6) k/uL RBC (3.80-5.40) m/uL Hgb (11.4-16.0) gm/dL Plt Count (150-450) k/uL Neutrophils # (1.3-7.7) k/uL ABG pCO2 (35-45) mmHg ABG pO2 (83-108) mmHg ABG HCO3 (21-25) mmol/L ABG Total CO2 (19-24) mmol/L ABG Lactic Acid (0.5-1.6) mmol/L Potassium (3.5-5.1) mmol/L Chloride (98-107) mmol/L Carbon Dioxide (22-30) mmol/L BUN (7-17) mg/dL Creatinine (0.52-1.04) mg/dL Glucose (74-99) mg/dL POC Glucose (mg/dL) 164 H 168 H 173 H (75-99) mg/dL Calcium (8.4-10.2) mg/dL AST (14-36) U/L ALT (9-52) U/L Total Protein (6.3-8.2) g/dL Albumin (3.5-5.0) g/dL 02/18/17 02/18/17 02/18/17 Range/Units 19:13 20:06 21:05 WBC (3.8-10.6) k/uL RBC (3.80-5.40) m/uL Hgb (11.4-16.0) gm/dL Plt Count (150-450) k/uL Neutrophils # (1.3-7.7) k/uL ABG pCO2 (35-45) mmHg ABG pO2 (83-108) mmHg ABG HCO3 (21-25) mmol/L ABG Total CO2 (19-24) mmol/L ABG Lactic Acid (0.5-1.6) mmol/L Potassium (3.5-5.1) mmol/L Chloride (98-107) mmol/L Carbon Dioxide (22-30) mmol/L BUN (7-17) mg/dL Creatinine (0.52-1.04) mg/dL Glucose (74-99) mg/dL POC Glucose (mg/dL) 158 H 158 H 162 H (75-99) mg/dL Calcium (8.4-10.2) mg/dL AST (14-36) U/L ALT (9-52) U/L Total Protein (6.3-8.2) g/dL Albumin (3.5-5.0) g/dL 02/18/17 02/19/17 02/19/17 Range/Units 22:23 00:10 02:06 WBC (3.8-10.6) k/uL RBC (3.80-5.40) m/uL Hgb (11.4-16.0) gm/dL Plt Count (150-450) k/uL Neutrophils # (1.3-7.7) k/uL ABG pCO2 (35-45) mmHg ABG pO2 (83-108) mmHg ABG HCO3 (21-25) mmol/L ABG Total CO2 (19-24) mmol/L ABG Lactic Acid (0.5-1.6) mmol/L Potassium (3.5-5.1) mmol/L Chloride (98-107) mmol/L Carbon Dioxide (22-30) mmol/L BUN (7-17) mg/dL Creatinine (0.52-1.04) mg/dL Glucose (74-99) mg/dL POC Glucose (mg/dL) 159 H 163 H 157 H (75-99) mg/dL Calcium (8.4-10.2) mg/dL AST (14-36) U/L ALT (9-52) U/L Total Protein (6.3-8.2) g/dL Albumin (3.5-5.0) g/dL 02/19/17 02/19/17 02/19/17 Range/Units 04:21 04:25 04:25 WBC 12.9 H (3.8-10.6) k/uL RBC 3.52 L (3.80-5.40) m/uL Hgb 10.8 L (11.4-16.0) gm/dL Plt Count 146 L (150-450) k/uL Neutrophils # 10.1 H (1.3-7.7) k/uL ABG pCO2 (35-45) mmHg ABG pO2 (83-108) mmHg ABG HCO3 (21-25) mmol/L ABG Total CO2 (19-24) mmol/L ABG Lactic Acid 3.2 H* (0.5-1.6) mmol/L Potassium (3.5-5.1) mmol/L Chloride (98-107) mmol/L Carbon Dioxide (22-30) mmol/L BUN (7-17) mg/dL Creatinine (0.52-1.04) mg/dL Glucose (74-99) mg/dL POC Glucose (mg/dL) 164 H (75-99) mg/dL Calcium (8.4-10.2) mg/dL AST (14-36) U/L ALT (9-52) U/L Total Protein (6.3-8.2) g/dL Albumin (3.5-5.0) g/dL 02/19/17 02/19/17 02/19/17 Range/Units 04:25 06:15 08:15 WBC (3.8-10.6) k/uL RBC (3.80-5.40) m/uL Hgb (11.4-16.0) gm/dL Plt Count (150-450) k/uL Neutrophils # (1.3-7.7) k/uL ABG pCO2 (35-45) mmHg ABG pO2 (83-108) mmHg ABG HCO3 (21-25) mmol/L ABG Total CO2 (19-24) mmol/L ABG Lactic Acid (0.5-1.6) mmol/L Potassium 3.4 L (3.5-5.1) mmol/L Chloride 114 H (98-107) mmol/L Carbon Dioxide 19 L (22-30) mmol/L BUN 18 H (7-17) mg/dL Creatinine 1.56 H (0.52-1.04) mg/dL Glucose 155 H (74-99) mg/dL POC Glucose (mg/dL) 158 H 191 H (75-99) mg/dL Calcium 6.5 L* (8.4-10.2) mg/dL AST (14-36) U/L ALT (9-52) U/L Total Protein (6.3-8.2) g/dL Albumin (3.5-5.0) g/dL 02/19/17 02/19/17 02/19/17 Range/Units 08:43 09:23 10:05 WBC (3.8-10.6) k/uL RBC (3.80-5.40) m/uL Hgb (11.4-16.0) gm/dL Plt Count (150-450) k/uL Neutrophils # (1.3-7.7) k/uL ABG pCO2 24 L (35-45) mmHg ABG pO2 80 L (83-108) mmHg ABG HCO3 15 L (21-25) mmol/L ABG Total CO2 16 L (19-24) mmol/L ABG Lactic Acid (0.5-1.6) mmol/L Potassium (3.5-5.1) mmol/L Chloride (98-107) mmol/L Carbon Dioxide (22-30) mmol/L BUN (7-17) mg/dL Creatinine (0.52-1.04) mg/dL Glucose (74-99) mg/dL POC Glucose (mg/dL) 171 H 182 H (75-99) mg/dL Calcium (8.4-10.2) mg/dL AST (14-36) U/L ALT (9-52) U/L Total Protein (6.3-8.2) g/dL Albumin (3.5-5.0) g/dL 02/19/17 02/19/17 02/19/17 Range/Units 11:06 12:08 13:59 WBC (3.8-10.6) k/uL RBC (3.80-5.40) m/uL Hgb (11.4-16.0) gm/dL Plt Count (150-450) k/uL Neutrophils # (1.3-7.7) k/uL ABG pCO2 (35-45) mmHg ABG pO2 (83-108) mmHg ABG HCO3 (21-25) mmol/L ABG Total CO2 (19-24) mmol/L ABG Lactic Acid (0.5-1.6) mmol/L Potassium (3.5-5.1) mmol/L Chloride (98-107) mmol/L Carbon Dioxide (22-30) mmol/L BUN (7-17) mg/dL Creatinine (0.52-1.04) mg/dL Glucose (74-99) mg/dL POC Glucose (mg/dL) 189 H 191 H 178 H (75-99) mg/dL Calcium (8.4-10.2) mg/dL AST (14-36) U/L ALT (9-52) U/L Total Protein (6.3-8.2) g/dL Albumin (3.5-5.0) g/dL Microbiology - Last 24 Hours (Table) 02/18/17 08:47 Blood Culture - Preliminary Blood No Growth after 24 hours 02/18/17 08:43 Blood Culture - Preliminary Blood No Growth after 24 hours 02/17/17 08:50 Urine Culture - Final Urine,Catheterized Escherichia coli 02/18/17 20:20 Gram Stain - Preliminary Sputum Sputum Culture - Preliminary Assessment and Plan Plan: impression: 1 acute hypoxic respiratory failure secondary to acute inferior wall myocardial infarction, cardiogenic shock, and severe LV dysfunction. And intermittent high -grade A-V heart block. 2 status post stent placement and intra-aortic balloon pump placement. As well as temporary pacemaker placement 3 type 2 diabetes, patient is presently on insulin drip. 4 history of hypertension 5 congestive heart failure, acute secondary to LV dysfunction. 6 acute kidney injury, acute tubular necrosis secondary to hypotension and hypoperfusion of state. Recommendation: Continue present ventilatory support, continue dobutamine, levo fed, insulin, GI and DVT prophylaxis, intra-aortic balloon pump, address nutritional support , clinical care manager was consulted. Prognosis is definitely guarded. Discussed her condition with family at bedside, presently patient is DO NOT RESUSCITATE, prognosis is definitely poor, we'll continue to follow. Critical care time is 35 minutes. Time with Patient: Greater than 30
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
[2017-02-19 15:13] LABS: Glucose,Whole Blood 178 mg/dL (75-99)
[2017-02-19] MEDS ORDERED: Potassium Replacement Protocol 1 EACH MISC MISCELLANE PRN ×2 (16:12→18:57)
[2017-02-19 16:23] LABS: Glucose,Whole Blood 181 mg/dL (75-99)
[2017-02-19] MEDS ORDERED: DEXTROSE 5% IN WATER 100 ML with AMIODARONE 150 MG IV ONE (16:54)
[2017-02-19] MEDS ORDERED: POTASSIUM CHLORIDE ORAL LIQUID 40 MEQ/30 ML CUP NG-TUBE SCH (17:00)
[2017-02-19] MEDS: AMIODARONE 450 MG in DEXTROSE 5% IN WATER 250 ML IV SCH ×2 (17:05)
[2017-02-19 17:23] LABS: Glucose,Whole Blood 174 mg/dL (75-99)
[2017-02-19 18:13] LABS: Glucose,Whole Blood 199 mg/dL (75-99)
[2017-02-19 19:05] LABS: Glucose,Whole Blood 196 mg/dL (75-99)
[2017-02-19] MEDS ORDERED: ALBUMIN HUMAN 25% 100 ML in EMPTY BAG 1 BAG IVPB SCH (20:00)
[2017-02-19 20:19] LABS: Glucose,Whole Blood 190 mg/dL (75-99)
[2017-02-19 21:21] LABS: Glucose,Whole Blood 198 mg/dL (75-99)
[2017-02-19] MEDS: INSULIN REGULAR 100 UNIT in SODIUM CHLORIDE 0.9% 100 ML IV SCH (21:26)
[2017-02-19 22:20] LABS: Glucose,Whole Blood 185 mg/dL (75-99)
[2017-02-20] MEDS: IPRATROPIUM 0.5 MG/2.5 ML NEBU INHALATION SCH ×4 (03:25→15:18)
[2017-02-20] MEDS: LEVALBUTEROL NEB (CONC) 1.25 MG/0.5 ML AMP INHALATION SCH ×4 (03:25→15:18)
[2017-02-20 04:20] LABS: Glucose,Whole Blood 183 mg/dL (75-99)
[2017-02-20 04:20] LABS: Glucose,Whole Blood 176 mg/dL (75-99)
[2017-02-20 04:20] LABS: Glucose,Whole Blood 170 mg/dL (75-99)
[2017-02-20 04:20] LABS: Glucose,Whole Blood 169 mg/dL (75-99)
[2017-02-20 04:40] LABS: Glucose,Whole Blood 181 mg/dL (75-99)
[2017-02-20 05:13] LABS: Glucose,Whole Blood 164 mg/dL (75-99)
[2017-02-20] MEDS: PROPOFOL 500 MG in EMPTY BAG 1 BAG IV SCH ×7 (05:18→15:18)
[2017-02-20 05:42] LABS: Basophils % (A) 0 %; CH 30.9; CHCM 31.8; Eosinophils % (A) 0 %; HCT 29.7 % (34.0-46.0); HGB 9.9 gm/dL (11.4-16.0); Luc # (Auto) 0.12; Luc % (Auto) 1; Lymphocytes # (A) 1.5 k/uL (1.0-4.8); Lymphocytes % (A) 15 %; MCH 32.9 pg (25.0-35.0); MCHC 33.5 g/dL (31.0-37.0); MCV 98.1 fL (80.0-100.0); Mean Platelet Volume 9.1; Monocytes # (A) 0.3 k/uL (0-1.0); Monocytes % (A) 3 %; Neutrophils # (A) 8.2 k/uL (1.3-7.7); Neutrophils % (A) 81 %; RBC 3.02 m/uL (3.80-5.40); RDW 15.1 % (11.5-15.5); WBC 10.2 k/uL (3.8-10.6); WBC (Perox) 10.53
[2017-02-20 05:53] LABS: Magnesium 2.1 mg/dL (1.6-2.3); Phosphorous 2.2 mg/dL (2.5-4.5); Potassium 3.8 mmol/L (3.5-5.1); Total Bilirubin 2.1 mg/dL (0.2-1.3); Total Protein 5.3 g/dL (6.3-8.2)
[2017-02-20 06:07] LABS: Glucose,Whole Blood 150 mg/dL (75-99)
[2017-02-20 06:26] LABS: Calcium 6.3 mg/dL (8.4-10.2)
[2017-02-20 07:05] LABS: Glucose,Whole Blood 152 mg/dL (75-99)
[2017-02-20 07:10] LABS: INR 1.5 (<1.1); Prothrombin Time 14.3 sec (9.0-12.0)
[2017-02-20] MEDS: NOREPINEPHRINE 16 MG in SODIUM CHLORIDE 0.9% 250 ML IV SCH ×2 (07:12→14:58)
[2017-02-20] MEDS ORDERED: Potassium Replacement Protocol 1 EACH MISC MISCELLANE PRN (07:12)
[2017-02-20 07:47] LABS: ABG Base Excess -8.2 mmol/L; ABG HCO3 15 mmol/L (21-25); ABG PCO2 24 mmHg (35-45); ABG PH 7.43 (7.35-7.45); ABG PO2 110 mmHg (83-108); ABG TCO2 16 mmol/L (19-24)
[2017-02-20] MEDS ORDERED: POTASSIUM CHLORIDE ORAL LIQUID 40 MEQ/30 ML CUP NG-TUBE ONE (08:00)
[2017-02-20 08:28] LABS: Glucose,Whole Blood 137 mg/dL (75-99)
[2017-02-20] MEDS: DEXTROSE 5% IN WATER 1,000 ML with SODIUM BICARB (1 MEQ/ML) 150 ML IV SCH ×3 (08:33→08:49)
[2017-02-20] MEDS: SODIUM CHLORIDE 0.9% 1,000 ML IV SCH ×2 (08:36→10:51)
[2017-02-20 08:42] LABS: Manual Review Performed
[2017-02-20] MEDS: ALBUMIN HUMAN 25% 50 ML in EMPTY BAG 1 BAG IVPB SCH ×2 (08:48→09:00)
[2017-02-20] MEDS: PIPERACILLIN-TAZOBACTAM 3.375 GM in DEXTROSE/WATER 1 50ML.BAG IVPB SCH ×2 (08:48→08:59)
[2017-02-20] MEDS: AMIODARONE 450 MG in DEXTROSE 5% IN WATER 250 ML IV SCH ×4 (08:49→08:50)
[2017-02-20 09:13] LABS: Glucose,Whole Blood 140 mg/dL (75-99)
[2017-02-20] MEDS: CHLORHEXIDINE GLUCONATE 15 ML CUP MUCOUS MEM SCH (09:28)
[2017-02-20] MEDS: PANTOPRAZOLE 40 MG/10 ML VIAL IVP SCH (09:28)
[2017-02-20] MEDS: ASPIRIN 81 MG CHEW PO SCH (09:44)
[2017-02-20] MEDS: ENOXAPARIN 30 MG/0.3 ML SYRINGE SQ SCH (09:44)
[2017-02-20] MEDS: PRASUGREL 10 MG TAB PO SCH (09:45)
[2017-02-20] MEDS ORDERED: ALBUMIN HUMAN 25% 50 ML in EMPTY BAG 1 BAG IVPB ONE (10:00)
[2017-02-20 10:06] LABS: Glucose,Whole Blood 142 mg/dL (75-99)
--- NOTE | 2017-02-20 10:10 | XR ---
EXAMINATION TYPE: XR chest 1V portable DATE OF EXAM: 02/20/2017 6:59 AM HISTORY: Tube placement. REFERENCE: Previous study dated 02/19/2017. FINDINGS: The patient is ET tube and NG tube remain in place, unchanged in appearance. The heart is upper limits of normal in size. There are bilateral effusions. There is left basilar air space disease. There is vascular congestion and pulmonary edema. This is worsened somewhat. IMPRESSION: WORSENING CHANGES OF PULMONARY EDEMA.
[2017-02-20] MEDS ORDERED: FUROSEMIDE 10 MG/ML 10 ML VIAL IV STA (10:25)
[2017-02-20] MEDS: DOBUTamine DRIP 500 MG in DEXTROSE/WATER 1 250ML.BAG IV SCH (10:51)
[2017-02-20 11:14] VITALS: BMI 32.1
[2017-02-20 11:19] LABS: Glucose,Whole Blood 141 mg/dL (75-99)
--- NOTE | 2017-02-20 11:23 | CONS ---
DATE OF CONSULTATION: 02/20/2017 REASON FOR CONSULTATION: Renal failure. HISTORY OF PRESENT ILLNESS: Patient is a 71-year-old white female who was admitted to the hospital on 02/17 with complaints of chest pain. Patient was noted to have inferior ST elevation with hypotension and bradycardia. She received IV fluids and was taken to labour market economist for emergent catheterization. Patient did have stenting of RCA. She went into cardiogenic shock and an intra-aortic balloon pump was also placed along with transvenous pacer. Currently, patient remains hypotensive. She is maintained on about 30 mcg of Levophed. Urine output has been low at about 5 mL an hour for the last few hours. Prior to that, it was zero. Patient remains on the vent. PAST MEDICAL HISTORY: Hypertension, hyperlipidemia, osteoarthritis, type 2 diabetes, coronary artery disease. PAST SURGICAL HISTORY: Previous cardiac catheterization, coronary stent placement, tubal ligation, cholecystectomy, SOCIAL HISTORY: Positive for smoking. No history of drug abuse or alcohol abuse. Review of systems cannot be obtained in detail. No fever, chills, diarrhea, or bleeding noted at this time. Medications at home include valsartan, Mevacor, glimepiride, metformin. Allergies include CODEINE. On examination, currently patient is sedated. She is on the vent. Blood pressure is low with systolic in the 90s. EXAMINATION OF THE HEART: S1 and S2. EXAMINATION OF THE LUNGS: Bilateral breath sounds are heard. ABDOMEN: Soft, nontender. Examination of lower extremities shows no evidence of edema. Intra-aortic balloon pump is noted. Labs reveal sodium 142, potassium 3.8, chloride 110, CO2 is 17, BUN 24, serum creatinine 2.71. Calcium 6.3. Hemoglobin 9.9 g/dL. ASSESSMENT: 1. Acute kidney injury, acute tubular necrosis secondary to hypotension, hypoperfusion. Continue with IV fluids, pressor support, try Lasix to help with urine output. 2. Metabolic acidosis secondary to hypotension, hypoperfusion, renal failure, maintained on bicarb drip. 3. Shock liver from hypotension. 4. Status post acute myocardial infarction, status post cardiac catheterization and coronary stent placement. PLAN: Continue with IV fluids, continue pressor support. Overall prognosis is guarded. Try Lasix to help with urine output. Thank you for this consultation. Will continue to follow the patient with you during her hospitalization.
[2017-02-20] MEDS ORDERED: CALCIUM GLUCONATE 1,000 MG in SODIUM CHLORIDE 0.9% 100 ML IVPB ONE (11:30)
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
[2017-02-20 12:02] LABS: Glucose,Whole Blood 146 mg/dL (75-99)
[2017-02-20 12:10] VITALS: TEMP 98.7
[2017-02-20] MEDS ORDERED: MORPHINE SULFATE 4 MG/ML SYRINGE IVP PRN (12:14)
[2017-02-20] MEDS ORDERED: MORPHINE SULFATE 100 MG in SODIUM CHLORIDE 0.9% 100 ML IV SCH (12:30)
[2017-02-20] MEDS ORDERED: DEXTROSE 5% IN WATER 100 ML with AMIODARONE 150 MG IV ONE (13:00)
[2017-02-20 13:10] LABS: Glucose,Whole Blood 163 mg/dL (75-99)
[2017-02-20 13:15] LABS: Mis test requested (Blood) PTT
--- NOTE | 2017-02-20 14:01 | P.PN ---
Subjective Principal diagnosis: Acute respiratory failure secondary to acute myocardial infarction/ST elevation myocardial infarction. This is a 71-year-old female who presented yesterday with acute inferior myocardial infarction. Patient was seen in the ER by cardiology, and she underwent immediate cardiac catheterization. Patient was found to have significant ST elevation and intermittent complete heart block picture with hypotension. In the [facility], patient developed high-grade AV block and cardiogenic shock. Patient had a temporary pacemaker placement and aortic balloon pump placement and PCI. Patient was later transferred to the ICU, and I saw on consultation yesterday. Today on 02/18/2017, patient remains on mechanical ventilation, remains on sodium bicarb drip, her ABG showed a pO2 of 89 pCO2 of 29 pH of 7.32. WBC count 16.1 hemoglobin is 11.9 PTT is 22.3 INR is 1.1. BUN is 16 creatinine is 1.20 unchanged from yesterday, not to mention that the urine output is becoming marginal, and I recommended a Lasix to be given early this morning. Patient remains on FiO2 of 45% with adequate oxygenation. Patient remains on propofol, sedated, she remains on 50 g of levo fed, and she is on dopamine at 3 mcg/kg/m. Patient is also on insulin drip for significant hyperglycemia. On 02/19/2017, patient remains on mechanical ventilation, her vent settings are basically about the same, chest x-ray is showing mild interstitial edema, urine output is extremely marginal, patient is now on relatively high dose of norepinephrine, she is also now on Dobutrex and blood pressure is marginal mean is running in the low 70s. Intra-aortic balloon pump remains in place. Augmentin blood pressure on intra-aortic balloon pump is about 90. Reevaluated today on 02/20/2017, patient seems to be going downhill, she is becoming almost oligoria, not responding to Lasix, not responding to pressors, she is also developing early congestive heart failure based on the chest x-ray today. Patient remains on mechanical ventilation, intra-aortic balloon pump remains in place, she still requiring significant doses of norepinephrine, and she is also on dobutamine. Family has been approached earlier by cardiology, and apparently patient is being considered for terminal weaning. And comfort care measures. And I think that is very appropriate. Labs from today were reviewed, ABG showed a pO2 of 110 pCO2 of 24 pH of 7.43. BUN is up to 24 creatinine is jumping up to 2.71. Liver enzymes are getting much worse and I believe were dealing with a shock liver. Troponin is also on the rise up to 216 , clearly the overall picture seems to be grim and non-promising. Objective - Vital Signs Vital signs: Vital Signs Temp 98.7 F 02/20/17 12:00 Pulse 82 02/20/17 12:00 Resp 27 H 02/20/17 12:00 BP 107/55 02/18/17 19:45 Pulse Ox 99 02/20/17 12:00 Intake & Output 02/19/17 02/20/17 02/20/17 18:59 06:59 18:59 Intake Total 2304.402 2435.364 1512.338 Output Total 550 87 20 Balance 2889.659 2932.364 1492.338 Weight 89.3 kg 90.3 kg 90.3 kg Intake: IV 1425 916.0 806.0 Albumin Human 25% 50 ml 50 In Empty Bag 1 bag @ 100 mls/hr IVPB Q12H [facility] Rx#: [id number] Albumin Human 25% 50 ml 200 In Empty Bag 1 bag @ 100 mls/hr IVPB Q12H [facility] Rx#: [id number] Dextrose 5% in Water 1, 925 825 450 000 ml @ 75 mls/hr IV . [id number] [facility] with Sodium Bicarb (1 Meq/ml) 150 ml Rx#:[id number] Magnesium Sulfate-D5w Pmx 200 1 gm In Dextrose/Water 1 100ml.bag @ 100 mls/hr IVPB Q1H [facility] Rx#: [id number] NS 200 Piperacillin-Tazobactam 3 50 25.0 50.0 .375 gm In Dextrose/Water 1 50ml.bag @ 12.5 mls/hr IVPB Q8HR [facility] Rx#: [id number] Pressure Bag 0.9 NaCl- 66 106 Intake, IV Titration 948.461 6562.364 426.338 Amount Amiodarone 450 mg In 345.56 Dextrose 5% in Water 250 ml @ 1 MG/MIN 34.53 mls/ hr IV .Q7H31M [facility] Rx#: [id number] DOBUTamine DRIP 500 mg In 67.1 6.1 Dextrose/Water 1 250ml. bag @ 2.5 MCG/KG/MIN 6.69 mls/hr IV .Q24H [facility] Rx#: [id number] Insulin Regular 100 unit 61.259 78.302 12.392 In Sodium Chloride 0.9% 100 ml @ Per Protocol IV .Q0M [facility] Rx#:[id number] Norepinephrine 16 mg In 413.891 291.597 144.704 Sodium Chloride 0.9% 250 ml @ Titrate IV .Q0M [facility] Rx#:[id number] Propofol 500 mg In Empty 229.252 196.805 143.142 Bag 1 bag @ Titrate IV . Q0M [facility] Rx#:[id number] Sodium Chloride 0.9% 1, 160 220 120 000 ml @ 20 mls/hr IV . Q24H [facility] Rx#:[id number] Tube Feeding 220 250 Albumin 100 Pressure Bag 0.9 NaCl- 100 Other 15 30 Output: Gastric Drainage 100 Urine 450 87 20 Other: Voiding Method Indwelling Catheter Indwelling Catheter Indwelling Catheter # Bowel Movements 1 ABP, PAP, CO, CI - Last Documented Arterial Blood Pressure 92/45 - Exam Physical Exam: Revealed a 71-year-old female on mechanical ventilation, sedated , in no distress. HEENT:[Neck is supple.] [No neck masses.] [No thyromegaly.] [No JVD.] endotracheal tube is intact. Chest: minimal crackles at the bases, no rhonchi, no wheezes] Cardiac Exam: [Normal S1 and S2, no S3 gallop, no murmur.] Abdomen: [Soft, nontender, no megaly, no rebound, no guarding, normal bowel sounds.] Extremities: [No clubbing, 2+ bipedal edema, no cyanosis.]intra-aortic balloon pump was noted, and it was placed through the right groin. Neurological Exam: cannot be assessed, patient is on propofol drip.] - Labs CBC & Chem 7: 02/20/17 05:10 02/20/17 05:10 Labs: Abnormal Lab Results - Last 24 Hours (Table) 02/19/17 02/19/17 02/19/17 Range/Units 13:59 15:11 16:21 RBC (3.80-5.40) m/uL Hgb (11.4-16.0) gm/dL Hct (34.0-46.0) % Plt Count (150-450) k/uL Neutrophils # (1.3-7.7) k/uL PT (9.0-12.0) sec ABG pCO2 (35-45) mmHg ABG pO2 (83-108) mmHg ABG HCO3 (21-25) mmol/L ABG Total CO2 (19-24) mmol/L ABG O2 Saturation (94-97) % ABG Lactic Acid (0.5-1.6) mmol/L Chloride (98-107) mmol/L Carbon Dioxide (22-30) mmol/L BUN (7-17) mg/dL Creatinine (0.52-1.04) mg/dL Glucose (74-99) mg/dL POC Glucose (mg/dL) 178 H 178 H 181 H (75-99) mg/dL Calcium (8.4-10.2) mg/dL Phosphorus (2.5-4.5) mg/dL Total Bilirubin (0.2-1.3) mg/dL AST (14-36) U/L ALT (9-52) U/L Alkaline Phosphatase (38-126) U/L Total Protein (6.3-8.2) g/dL Albumin (3.5-5.0) g/dL 02/19/17 02/19/17 02/19/17 Range/Units 17:22 18:10 19:03 RBC (3.80-5.40) m/uL Hgb (11.4-16.0) gm/dL Hct (34.0-46.0) % Plt Count (150-450) k/uL Neutrophils # (1.3-7.7) k/uL PT (9.0-12.0) sec ABG pCO2 (35-45) mmHg ABG pO2 (83-108) mmHg ABG HCO3 (21-25) mmol/L ABG Total CO2 (19-24) mmol/L ABG O2 Saturation (94-97) % ABG Lactic Acid (0.5-1.6) mmol/L Chloride (98-107) mmol/L Carbon Dioxide (22-30) mmol/L BUN (7-17) mg/dL Creatinine (0.52-1.04) mg/dL Glucose (74-99) mg/dL POC Glucose (mg/dL) 174 H 199 H 196 H (75-99) mg/dL Calcium (8.4-10.2) mg/dL Phosphorus (2.5-4.5) mg/dL Total Bilirubin (0.2-1.3) mg/dL AST (14-36) U/L ALT (9-52) U/L Alkaline Phosphatase (38-126) U/L Total Protein (6.3-8.2) g/dL Albumin (3.5-5.0) g/dL 02/19/17 02/19/17 02/19/17 Range/Units 20:10 21:14 22:06 RBC (3.80-5.40) m/uL Hgb (11.4-16.0) gm/dL Hct (34.0-46.0) % Plt Count (150-450) k/uL Neutrophils # (1.3-7.7) k/uL PT (9.0-12.0) sec ABG pCO2 (35-45) mmHg ABG pO2 (83-108) mmHg ABG HCO3 (21-25) mmol/L ABG Total CO2 (19-24) mmol/L ABG O2 Saturation (94-97) % ABG Lactic Acid (0.5-1.6) mmol/L Chloride (98-107) mmol/L Carbon Dioxide (22-30) mmol/L BUN (7-17) mg/dL Creatinine (0.52-1.04) mg/dL Glucose (74-99) mg/dL POC Glucose (mg/dL) 190 H 198 H 185 H (75-99) mg/dL Calcium (8.4-10.2) mg/dL Phosphorus (2.5-4.5) mg/dL Total Bilirubin (0.2-1.3) mg/dL AST (14-36) U/L ALT (9-52) U/L Alkaline Phosphatase (38-126) U/L Total Protein (6.3-8.2) g/dL Albumin (3.5-5.0) g/dL 02/19/17 02/20/17 02/20/17 Range/Units 22:54 00:26 01:18 RBC (3.80-5.40) m/uL Hgb (11.4-16.0) gm/dL Hct (34.0-46.0) % Plt Count (150-450) k/uL Neutrophils # (1.3-7.7) k/uL PT (9.0-12.0) sec ABG pCO2 (35-45) mmHg ABG pO2 (83-108) mmHg ABG HCO3 (21-25) mmol/L ABG Total CO2 (19-24) mmol/L ABG O2 Saturation (94-97) % ABG Lactic Acid (0.5-1.6) mmol/L Chloride (98-107) mmol/L Carbon Dioxide (22-30) mmol/L BUN (7-17) mg/dL Creatinine (0.52-1.04) mg/dL Glucose (74-99) mg/dL POC Glucose (mg/dL) 183 H 170 H 169 H (75-99) mg/dL Calcium (8.4-10.2) mg/dL Phosphorus (2.5-4.5) mg/dL Total Bilirubin (0.2-1.3) mg/dL AST (14-36) U/L ALT (9-52) U/L Alkaline Phosphatase (38-126) U/L Total Protein (6.3-8.2) g/dL Albumin (3.5-5.0) g/dL 02/20/17 02/20/17 02/20/17 Range/Units 02:03 04:26 05:10 RBC 3.02 L (3.80-5.40) m/uL Hgb 9.9 L (11.4-16.0) gm/dL Hct 29.7 L (34.0-46.0) % Plt Count 97 L (150-450) k/uL Neutrophils # 8.2 H (1.3-7.7) k/uL PT (9.0-12.0) sec ABG pCO2 (35-45) mmHg ABG pO2 (83-108) mmHg ABG HCO3 (21-25) mmol/L ABG Total CO2 (19-24) mmol/L ABG O2 Saturation (94-97) % ABG Lactic Acid (0.5-1.6) mmol/L Chloride (98-107) mmol/L Carbon Dioxide (22-30) mmol/L BUN (7-17) mg/dL Creatinine (0.52-1.04) mg/dL Glucose (74-99) mg/dL POC Glucose (mg/dL) 176 H 181 H (75-99) mg/dL Calcium (8.4-10.2) mg/dL Phosphorus (2.5-4.5) mg/dL Total Bilirubin (0.2-1.3) mg/dL AST (14-36) U/L ALT (9-52) U/L Alkaline Phosphatase (38-126) U/L Total Protein (6.3-8.2) g/dL Albumin (3.5-5.0) g/dL 02/20/17 02/20/17 02/20/17 Range/Units 05:10 05:10 06:00 RBC (3.80-5.40) m/uL Hgb (11.4-16.0) gm/dL Hct (34.0-46.0) % Plt Count (150-450) k/uL Neutrophils # (1.3-7.7) k/uL PT (9.0-12.0) sec ABG pCO2 (35-45) mmHg ABG pO2 (83-108) mmHg ABG HCO3 (21-25) mmol/L ABG Total CO2 (19-24) mmol/L ABG O2 Saturation (94-97) % ABG Lactic Acid 5.3 H* (0.5-1.6) mmol/L Chloride 110 H (98-107) mmol/L Carbon Dioxide 17 L (22-30) mmol/L BUN 24 H (7-17) mg/dL Creatinine 2.71 H (0.52-1.04) mg/dL Glucose 142 H (74-99) mg/dL POC Glucose (mg/dL) 164 H (75-99) mg/dL Calcium 6.3 L* (8.4-10.2) mg/dL Phosphorus 2.2 L (2.5-4.5) mg/dL Total Bilirubin 2.1 H (0.2-1.3) mg/dL AST 3227 H (14-36) U/L ALT 1683 H (9-52) U/L Alkaline Phosphatase 181 H (38-126) U/L Total Protein 5.3 L (6.3-8.2) g/dL Albumin 3.0 L (3.5-5.0) g/dL 02/20/17 02/20/17 02/20/17 Range/Units 06:04 06:52 06:52 RBC (3.80-5.40) m/uL Hgb (11.4-16.0) gm/dL Hct (34.0-46.0) % Plt Count (150-450) k/uL Neutrophils # (1.3-7.7) k/uL PT 14.3 H (9.0-12.0) sec ABG pCO2 (35-45) mmHg ABG pO2 (83-108) mmHg ABG HCO3 (21-25) mmol/L ABG Total CO2 (19-24) mmol/L ABG O2 Saturation (94-97) % ABG Lactic Acid (0.5-1.6) mmol/L Chloride (98-107) mmol/L Carbon Dioxide (22-30) mmol/L BUN (7-17) mg/dL Creatinine (0.52-1.04) mg/dL Glucose (74-99) mg/dL POC Glucose (mg/dL) 150 H 152 H (75-99) mg/dL Calcium (8.4-10.2) mg/dL Phosphorus (2.5-4.5) mg/dL Total Bilirubin (0.2-1.3) mg/dL AST (14-36) U/L ALT (9-52) U/L Alkaline Phosphatase (38-126) U/L Total Protein (6.3-8.2) g/dL Albumin (3.5-5.0) g/dL 02/20/17 02/20/17 02/20/17 Range/Units 07:38 08:26 09:11 RBC (3.80-5.40) m/uL Hgb (11.4-16.0) gm/dL Hct (34.0-46.0) % Plt Count (150-450) k/uL Neutrophils # (1.3-7.7) k/uL PT (9.0-12.0) sec ABG pCO2 24 L (35-45) mmHg ABG pO2 110 H (83-108) mmHg ABG HCO3 15 L (21-25) mmol/L ABG Total CO2 16 L (19-24) mmol/L ABG O2 Saturation 99.0 H (94-97) % ABG Lactic Acid (0.5-1.6) mmol/L Chloride (98-107) mmol/L Carbon Dioxide (22-30) mmol/L BUN (7-17) mg/dL Creatinine (0.52-1.04) mg/dL Glucose (74-99) mg/dL POC Glucose (mg/dL) 137 H 140 H (75-99) mg/dL Calcium (8.4-10.2) mg/dL Phosphorus (2.5-4.5) mg/dL Total Bilirubin (0.2-1.3) mg/dL AST (14-36) U/L ALT (9-52) U/L Alkaline Phosphatase (38-126) U/L Total Protein (6.3-8.2) g/dL Albumin (3.5-5.0) g/dL 02/20/17 02/20/17 02/20/17 Range/Units 10:03 11:17 12:00 RBC (3.80-5.40) m/uL Hgb (11.4-16.0) gm/dL Hct (34.0-46.0) % Plt Count (150-450) k/uL Neutrophils # (1.3-7.7) k/uL PT (9.0-12.0) sec ABG pCO2 (35-45) mmHg ABG pO2 (83-108) mmHg ABG HCO3 (21-25) mmol/L ABG Total CO2 (19-24) mmol/L ABG O2 Saturation (94-97) % ABG Lactic Acid (0.5-1.6) mmol/L Chloride (98-107) mmol/L Carbon Dioxide (22-30) mmol/L BUN (7-17) mg/dL Creatinine (0.52-1.04) mg/dL Glucose (74-99) mg/dL POC Glucose (mg/dL) 142 H 141 H 146 H (75-99) mg/dL Calcium (8.4-10.2) mg/dL Phosphorus (2.5-4.5) mg/dL Total Bilirubin (0.2-1.3) mg/dL AST (14-36) U/L ALT (9-52) U/L Alkaline Phosphatase (38-126) U/L Total Protein (6.3-8.2) g/dL Albumin (3.5-5.0) g/dL 02/20/17 Range/Units 13:08 RBC (3.80-5.40) m/uL Hgb (11.4-16.0) gm/dL Hct (34.0-46.0) % Plt Count (150-450) k/uL Neutrophils # (1.3-7.7) k/uL PT (9.0-12.0) sec ABG pCO2 (35-45) mmHg ABG pO2 (83-108) mmHg ABG HCO3 (21-25) mmol/L ABG Total CO2 (19-24) mmol/L ABG O2 Saturation (94-97) % ABG Lactic Acid (0.5-1.6) mmol/L Chloride (98-107) mmol/L Carbon Dioxide (22-30) mmol/L BUN (7-17) mg/dL Creatinine (0.52-1.04) mg/dL Glucose (74-99) mg/dL POC Glucose (mg/dL) 163 H (75-99) mg/dL Calcium (8.4-10.2) mg/dL Phosphorus (2.5-4.5) mg/dL Total Bilirubin (0.2-1.3) mg/dL AST (14-36) U/L ALT (9-52) U/L Alkaline Phosphatase (38-126) U/L Total Protein (6.3-8.2) g/dL Albumin (3.5-5.0) g/dL Microbiology - Last 24 Hours (Table) 02/18/17 20:20 Gram Stain - Preliminary Sputum Sputum Culture - Preliminary Presumptive Staph aureus Gram Neg Bacilli 02/18/17 08:47 Blood Culture - Preliminary Blood No Growth after 48 hours 02/18/17 08:43 Blood Culture - Preliminary Blood No Growth after 48 hours Assessment and Plan Plan: impression: 1 acute hypoxic respiratory failure secondary to acute inferior wall myocardial infarction, cardiogenic shock, and severe LV dysfunction. And intermittent high -grade A-V heart block. 2 status post stent placement and intra-aortic balloon pump placement. As well as temporary pacemaker placement 3 type 2 diabetes, patient is presently on insulin drip. 4 history of hypertension 5 congestive heart failure, acute secondary to LV dysfunction. 6 acute kidney injury, acute tubular necrosis secondary to hypotension and hypoperfusion of state. 7 shock liver 8 multisystem organ failure and cardiogenic shock with congestive heart failure , systolic secondary to poor LV function. Recommendation: Discussed her condition with the son at bedside, and the family is already making plans to proceed with comfort care and possibly hospice. I have explained to the son that we can potentially stop all her pressors, removing the intra-aortic balloon pump, and later proceeded to extubation and comfort care. Patient may not even require hospice. Critical care time is 40 minutes Time with Patient: Greater than 30
[2017-02-20] MEDS: INSULIN REGULAR 100 UNIT in SODIUM CHLORIDE 0.9% 100 ML IV SCH (14:07)
[2017-02-20 14:09] LABS: Glucose,Whole Blood 142 mg/dL (75-99)
[2017-02-20 15:08] VITALS: PULSE 117; RESP 28
[2017-02-20 15:17] LABS: Glucose,Whole Blood 134 mg/dL (75-99)
--- NOTE | 2017-02-20 16:02 | PN ---
I had a long discussion with Mrs. Burrows's sons and other family members. I explained to them that her chances of recovery are very grim, and we should probably keep her comfortable. They wish hospice, and therefore we will transfer her to hospice service today. Intra-aortic balloon pump has been pulled, hemostasis secured. We are waiting for the hospice nurse to come and initiate the process. The plan is to keep her comfortable in hospice, and I expect that she will probably soon pass. We will not do any aggressive life-saving measures. This was agreed upon by all family members, and apparently it was also her desire, according to one of her sons. This is an unfortunate outcome in a patient who came in with an acute ST-elevation CA with cardiogenic shock, complete heart block, and also with severe acidosis as a result of diabetic ketoacidosis. This outcome was not unexpected, unfortunately.
[2017-02-20 16:10] LABS: Glucose,Whole Blood 137 mg/dL (75-99)
[2017-02-20] MEDS ORDERED: PIPERACILLIN-TAZOBACTAM 3.375 GM in DEXTROSE/WATER 1 50ML.BAG IVPB SCH (21:00)
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
== END 2017-02-20 16:32 | disposition hospice, inpatient (51) | DRG 270 ==
LOC: EC 05:02 → UNDOADMIN 05:15 → 6ICU 05:15
PROVIDERS: ADMIT Family Medicine; ATTEND Family Medicine
PROC: 4A023N7 Measurement of Cardiac Sampling and Pressure, Left Heart, Percutaneous Approach (ICD-10-PCS; principal; 2017-02-18)
PROC: 02HK3JZ Insertion of Pacemaker Lead into Right Ventricle, Percutaneous Approach (ICD-10-PCS; principal; 2017-02-18)
PROC: 5A02210 Assistance with Cardiac Output using Balloon Pump, Continuous (ICD-10-PCS; principal; 2017-02-18)
PROC: 5A1945Z Respiratory Ventilation, 24-96 Consecutive Hours (ICD-10-PCS; principal; 2017-02-18)
PROC: 5A1223Z Performance of Cardiac Pacing, Continuous (ICD-10-PCS; principal; 2017-02-18)
PROC: 0BH17EZ Insertion of Endotracheal Airway into Trachea, Via Natural or Artificial Opening (ICD-10-PCS; principal; 2017-02-18)
PROC: 027034Z Dilation of Coronary Artery, One Artery with Drug-eluting Intraluminal Device, Percutaneous Approach (ICD-10-PCS; principal; 2017-02-18)
PROC: B2111ZZ Fluoroscopy of Multiple Coronary Arteries using Low Osmolar Contrast (ICD-10-PCS; principal; 2017-02-18)
DX: I21.19 ST elevation (STEMI) myocardial infarction involving other coronary artery of inferior wall (principal); I50.23 Acute on chronic systolic (congestive) heart failure; K72.00 Acute and subacute hepatic failure without coma; J96.01 Acute respiratory failure with hypoxia; J96.02 Acute respiratory failure with hypercapnia; I13.0 Hypertensive heart and chronic kidney disease with heart failure and stage 1 through stage 4 chronic kidney disease, or unspecified chronic kidney disease; E13.10 Other specified diabetes mellitus with ketoacidosis without coma; N17.0 Acute kidney failure with tubular necrosis; R57.0 Cardiogenic shock; I44.2 Atrioventricular block, complete; E11.22 Type 2 diabetes mellitus with diabetic chronic kidney disease; E78.5 Hyperlipidemia, unspecified; F17.200 Nicotine dependence, unspecified, uncomplicated; I08.3 Combined rheumatic disorders of mitral, aortic and tricuspid valves; I25.10 Atherosclerotic heart disease of native coronary artery without angina pectoris; I48.91 Unspecified atrial fibrillation; M17.0 Bilateral primary osteoarthritis of knee; N18.2 Chronic kidney disease, stage 2 (mild); Z51.5 Encounter for palliative care; Z79.84 Long term (current) use of oral hypoglycemic drugs; Z82.49 Family history of ischemic heart disease and other diseases of the circulatory system; Z88.5 Allergy status to narcotic agent
CPT/HCPCS: 71010; 80048; 80053; 81001; 82009; 82550; 82553; 82805; 83036; 83605; 83735; 84100; 84132; 84484; 85025; 85027; 85610; 85730; 87040; 87070; 87077; 87086; 87186; 87205; 87502; 93005; 93306; 93458; 94002; 94003; 94640

== ENCOUNTER 2017-02-20 16:40 | Inpatient (IN) | payer MEDICAID ==
[~2017-02-20 16:40] MED LIST: PROPOFOL 10 MG/ML 50 ML VIAL IV ONE
[2017-02-20] MEDS ORDERED: MORPHINE SULFATE 100 MG in SODIUM CHLORIDE 0.9% 100 ML IV SCH (16:45)
[2017-02-20] MEDS ORDERED: LORazepam 2 MG/ML SYRINGE IV PRN (16:46)
[2017-02-20] MEDS ORDERED: ONDANSETRON 4 MG/2 ML VIAL IVP PRN (16:46)
[2017-02-20 17:45] VITALS: BP 54/27; PULSE 42; RESP 24; TEMP 97.5
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
== END 2017-02-20 19:21 | disposition expired ==
LOC: 6ICU 16:40
PROVIDERS: ADMIT Family Medicine; ATTEND Family Medicine
DX: I21.3 ST elevation (STEMI) myocardial infarction of unspecified site (principal); J96.01 Acute respiratory failure with hypoxia; R57.0 Cardiogenic shock; J96.02 Acute respiratory failure with hypercapnia; E13.10 Other specified diabetes mellitus with ketoacidosis without coma; E78.5 Hyperlipidemia, unspecified; M17.0 Bilateral primary osteoarthritis of knee; M19.042 Primary osteoarthritis, left hand; M19.041 Primary osteoarthritis, right hand; F17.210 Nicotine dependence, cigarettes, uncomplicated; I12.9 Hypertensive chronic kidney disease with stage 1 through stage 4 chronic kidney disease, or unspecified chronic kidney disease; N18.2 Chronic kidney disease, stage 2 (mild); I08.3 Combined rheumatic disorders of mitral, aortic and tricuspid valves; I48.91 Unspecified atrial fibrillation; Z90.49 Acquired absence of other specified parts of digestive tract; Z95.5 Presence of coronary angioplasty implant and graft; K52.9 Noninfective gastroenteritis and colitis, unspecified; Z79.84 Long term (current) use of oral hypoglycemic drugs; Z79.899 Other long term (current) drug therapy; Z82.49 Family history of ischemic heart disease and other diseases of the circulatory system; Z82.5 Family history of asthma and other chronic lower respiratory diseases; Z82.0 Family history of epilepsy and other diseases of the nervous system